=== PATIENT | male | born 1960 | race Caucasian/White ===

== ENCOUNTER 2018-04-13 09:48 | Emergency (ER) | payer OTHER ==
[~2018-04-13] VITALS: Ht 185.4 cm; Wt 117.9 kg
[~2018-04-13 09:48] MED LIST: ASPI325EC PO; CEPH500 PO; CIPR500 PO; GABA300 PO; INS70/30I SC; INSR10I; LISI20 PO; METF500C PO; [UNRECOGNIZED DRUG - REMARK]
== END 2018-04-13 12:23 | disposition home or self-care (01) ==
LOC: ER 09:48
DX: S91.332A Puncture wound without foreign body, left foot, initial encounter (principal); Z79.899 Other long term (current) drug therapy; Z79.84 Long term (current) use of oral hypoglycemic drugs; Z79.82 Long term (current) use of aspirin; I10 Essential (primary) hypertension; E11.9 Type 2 diabetes mellitus without complications; F17.200 Nicotine dependence, unspecified, uncomplicated; W22.8XXA Striking against or struck by other objects, initial encounter
CPT/HCPCS: 73630; 99283-25

== ENCOUNTER 2018-05-16 15:12 | Emergency (ER) | payer OTHER ==
[~2018-05-16] VITALS: Ht 188 cm; Wt 124.7 kg
[2018-05-16 15:56] LABS: BASOPHILS ABSOLUTE AUTO 0.04 K/mm3 (0.00-0.23); BASOPHILS PERCENT AUTO 0 % (0-2); EOSINOPHILS ABSOLUTE AUTO 0.23 K/mm3 (0.00-0.68); EOSINOPHILS PERCENT AUTO 2 % (0-6); Hematocrit 40.5 % (37.0-53.0); Hemoglobin 13.7 g/dL (13.5-17.5); IMMATURE GRAN ABSOLUTE AUTO 0.02 K/mm3 (0.00-0.10); IMMATURE GRAN PERCENT AUTO 0 % (0-1); LYMPHOCYTES ABSOLUTE AUTO 2.72 K/mm3 (0.84-5.20); LYMPHOCYTES PERCENT AUTO 28 % (21-46); MONOCYTES ABSOLUTE AUTO 0.81 K/mm3 (0.16-1.47); MONOCYTES PERCENT AUTO 8 % (4-13); Mean Corpuscular HGB 28.9 pg (26.0-34.0); Mean Corpuscular HGB Conc 33.8 g/dL (31.5-36.5); Mean Corpuscular Volume 85 fL (80-100); Mean Platelet Volume 9.2 fL (9.1-12.4); NEUTROPHILS ABSOLUTE AUTO 5.98 K/mm3 (1.96-9.15); NEUTROPHILS PERCENT AUTO 61 % (41-73); Platelet Count 248 K/mm3 (150-400); RDW Coefficient Variation 13.1 % (11.7-14.2); RDW Standard Deviation 40.3 fL (35.1-46.3); Red Blood Cell Count 4.74 M/mm3 (4.30-5.90)
[2018-05-16 16:19] LABS: Anion Gap 10 mmol/L (6-16); Blood Urea Nitrogen 30 mg/dL (8-24); Bun/Creatinine Ratio 23.4 (12.0-20.0); CO2, Blood 25 mmol/L (21-32); Calcium, Blood 9.4 mg/dL (8.5-10.1); Chloride, Blood 103 mmol/L (98-108); Creatinine, Blood 1.28 mg/dL (0.60-1.20); Glomerular Filtration Rate >60 (60-); Glucose, Blood 146 mg/dL (70-99); Potassium, Blood 3.9 mmol/L (3.5-5.5); Sodium, Blood 138 mmol/L (136-145)
[2018-05-16] MEDS ORDERED: GLIP5 PO (16:47)
== END 2018-05-16 17:13 | disposition home or self-care (01) ==
LOC: ER 15:12
PROVIDERS: Physician Assistant
DX: L03.115 Cellulitis of right lower limb (principal); L97.219 Non-pressure chronic ulcer of right calf with unspecified severity; I82.511 Chronic embolism and thrombosis of right femoral vein; I10 Essential (primary) hypertension; E11.42 Type 2 diabetes mellitus with diabetic polyneuropathy; F17.210 Nicotine dependence, cigarettes, uncomplicated; Z79.82 Long term (current) use of aspirin; Z79.899 Other long term (current) drug therapy
CPT/HCPCS: 36415; 80048; 85025; 93971; 99284-25

== ENCOUNTER → 2018-09-19 | Outpatient (CLI) | payer OTHER ==
[~2018-09-19] MED LIST changes: +GLIP5 PO
[2018-09-19 19:54] LABS: Microalb/Creat Ratio UR, Rand 139.091 mg/g (0.000-30.000)
== END ==
LOC: LAB SHORT 14:47 → LAB 14:47 → EDSTATUS 09-07 10:40 → LAB FUT 09-07 10:40
PROVIDERS: Family Medicine
DX: E11.8 Type 2 diabetes mellitus with unspecified complications (principal)
CPT/HCPCS: 82043; 82570

== ENCOUNTER → 2018-11-14 | Outpatient (CLI) | payer OTHER ==
[2018-11-14 20:04] LABS: Anion Gap 3 mmol/L (6-16); Blood Urea Nitrogen 34 mg/dL (8-24); Bun/Creatinine Ratio 31.8 (12.0-20.0); CO2, Blood 30 mmol/L (21-32); Calcium, Blood 9.3 mg/dL (8.5-10.1); Chloride, Blood 105 mmol/L (98-108); Creatinine, Blood 1.07 mg/dL (0.60-1.20); Glomerular Filtration Rate >60 (60-); Glucose, Blood 176 mg/dL (70-99); Potassium, Blood 4.6 mmol/L (3.5-5.5); Sodium, Blood 138 mmol/L (136-145)
== END ==
LOC: LAB 19:36 → LAB SHORT 19:36
PROVIDERS: Family Medicine
DX: I50.32 Chronic diastolic (congestive) heart failure (principal)
CPT/HCPCS: 80048

== ENCOUNTER → 2019-04-03 | Outpatient (CLI) | payer OTHER ==
[~2019-04-03] MED LIST changes: +ASPI325 PO; +ATORVASTATIN CA40 MG PO; +CARV3.125 PO; +Depo-Testos200 MG/ML IM; +ELIQUIS5 MG PO; +FUROSEMIDE20 MG PO; +INSULANPEN SC; +LOSARTAN POTAS100 MG PO; +Lopressor 25 mg25 MG PO
[2019-04-03 21:10] LABS: Microalb/Creat Ratio UR, Rand 364.205 mg/g (0.000-30.000)
== END ==
LOC: LAB SHORT 19:36 → LAB 19:36 → LAB FUT 04-03 16:00
PROVIDERS: Family Medicine
DX: E11.42 Type 2 diabetes mellitus with diabetic polyneuropathy (principal); E11.21 Type 2 diabetes mellitus with diabetic nephropathy; E11.65 Type 2 diabetes mellitus with hyperglycemia; Z79.4 Long term (current) use of insulin
CPT/HCPCS: 82043; 82570

== ENCOUNTER → 2021-06-28 | Outpatient (CLI) | payer MEDICARE, OTHER ==
[2021-06-28 18:57] LABS: BASOPHILS ABSOLUTE AUTO 0.03 K/mm3 (0.00-0.23); BASOPHILS PERCENT AUTO 0 % (0-2); EOSINOPHILS PERCENT AUTO 2 % (0-6); Hemoglobin 13.1 g/dL (13.5-17.5); IMMATURE GRAN ABSOLUTE AUTO 0.03 K/mm3 (0.00-0.10); IMMATURE GRAN PERCENT AUTO 0 % (0-1); LYMPHOCYTES ABSOLUTE AUTO 1.92 K/mm3 (0.84-5.20); LYMPHOCYTES PERCENT AUTO 23 % (21-46); MONOCYTES PERCENT AUTO 7 % (4-13); Mean Corpuscular HGB 28.6 pg (26.0-34.0); Mean Corpuscular HGB Conc 32.8 g/dL (31.5-36.5); Mean Corpuscular Volume 87 fL (80-100); Mean Platelet Volume 9.9 fL (9.1-12.4); NEUTROPHILS PERCENT AUTO 67 % (41-73); Platelet Count 259 K/mm3 (150-400); RDW Coefficient Variation 13.3 % (11.7-14.2); RDW Standard Deviation 42.3 fL (35.1-46.3); Red Blood Cell Count 4.58 M/mm3 (4.30-5.90); White Blood Cell Count 8.48 K/mm3 (4.00-11.30)
[2021-06-28 19:30] LABS: Alanine Aminotransfer (ALT/SGP 28 U/L (12-78); Albumin, Blood 3.5 g/dL (3.4-5.0); Albumin/Globulin Ratio 0.8 (0.8-1.8); Alk Phos 104 U/L (50-136); Anion Gap 6 mmol/L (6-16); Aspartate Aminotrans (AST/SGOT 19 U/L (12-37); Bilirubin, Total 0.3 mg/dL (0.1-1.0); Blood Urea Nitrogen 35 mg/dL (8-24); CHOL/HDL RATIO 4.4; CO2, Blood 26 mmol/L (21-32); Calcium, Blood 9.2 mg/dL (8.5-10.1); Chloride, Blood 104 mmol/L (98-108); Cholesterol 167 mg/dL (50-200); Creatinine, Blood 1.06 mg/dL (0.60-1.20); Globulin, Blood 4.3 g/dL (2.2-4.0); Glomerular Filtration Rate >60 (60-); Glucose, Blood 313 mg/dL (70-99); HDL Cholesterol 38 mg/dL (>39); LDL/HDL RATIO 1.6; Low Density Lipoprotein Chol 61 mg/dL (0-110); Potassium, Blood 4.6 mmol/L (3.5-5.5); Sodium, Blood 136 mmol/L (136-145); Total Protein, Blood 7.8 g/dL (6.4-8.2); Triglycerides 338 mg/dL (30-160); Very Low Density Lipoprot Chol 67 mg/dL (6-32)
[2021-06-28 19:38] LABS: Thyroid Stimulating Hormone 0.622 uIU/mL (0.360-4.800)
== END | disposition home or self-care (01) ==
LOC: LAB 17:32 → LAB SHORT 17:32
PROVIDERS: Family Medicine
DX: Z51.81 Encounter for therapeutic drug level monitoring (principal); Z79.899 Other long term (current) drug therapy
CPT/HCPCS: 80053; 80061; 82306; 84443; 85025

== ENCOUNTER → 2021-08-11 | Outpatient (CLI) | payer MEDICARE, OTHER ==
[2021-08-11 13:52] LABS: Microalb/Creat Ratio UR, Rand 412.925 mg/g (0.000-30.000)
== END | disposition home or self-care (01) ==
LOC: LAB 10:02 → LAB SHORT 10:02
PROVIDERS: Family Medicine
DX: Z51.81 Encounter for therapeutic drug level monitoring (principal); Z79.899 Other long term (current) drug therapy
CPT/HCPCS: 82043; 82570

== ENCOUNTER 2021-12-25 12:28 | Inpatient (IN) | payer MEDICARE, OTHER ==
[~2021-12-25] VITALS: Ht 182.9 cm; Wt 117.9 kg
[~2021-12-25 12:28] MED LIST changes: +AMOCLA875 PO; +ASPI81CH PO; +Acetaminophen325 M1 PO; +CEFD300 PO; +Clindamycin HC150 MG PO; +ELIQUIS5 M2 PO; +HUMULIN R500 UNIT/1 SC; +LOSARTAN POTAS100 M1 PO; -LOSARTAN POTAS100 MG PO; +METF500 PO; +METR500 PO; +SPIR50 PO; +VISBIOME 112.51 EACH PO
[2021-12-25 15:41] LABS: BASOPHILS ABSOLUTE AUTO 0.04 K/mm3 (0.00-0.23); BASOPHILS PERCENT AUTO 0 % (0-2); EOSINOPHILS ABSOLUTE AUTO 0.41 K/mm3 (0.00-0.68); EOSINOPHILS PERCENT AUTO 3 % (0-6); Hematocrit 38.2 % (37.0-53.0); Hemoglobin 12.3 g/dL (13.5-17.5); IMMATURE GRAN ABSOLUTE AUTO 0.05 K/mm3 (0.00-0.10); IMMATURE GRAN PERCENT AUTO 0 % (0-1); LYMPHOCYTES PERCENT AUTO 14 % (21-46); MONOCYTES PERCENT AUTO 5 % (4-13); Mean Corpuscular HGB 28.5 pg (26.0-34.0); Mean Corpuscular HGB Conc 32.2 g/dL (31.5-36.5); Mean Corpuscular Volume 89 fL (80-100); Mean Platelet Volume 8.7 fL (9.1-12.4); NEUTROPHILS ABSOLUTE AUTO 9.73 K/mm3 (1.96-9.15); NEUTROPHILS PERCENT AUTO 77 % (41-73); Platelet Count 411 K/mm3 (150-400); RDW Coefficient Variation 13.8 % (11.7-14.2); RDW Standard Deviation 44.7 fL (35.1-46.3); Red Blood Cell Count 4.31 M/mm3 (4.30-5.90); White Blood Cell Count 12.63 K/mm3 (4.00-11.30)
[2021-12-25 16:09] LABS: Albumin, Blood 3.1 g/dL (3.4-5.0); Albumin/Globulin Ratio 0.5 (0.8-1.8); Bilirubin, Total 0.4 mg/dL (0.1-1.0); Bun/Creatinine Ratio 34.7 (12.0-20.0); Calcium, Blood 9.5 mg/dL (8.5-10.1); Creatinine, Blood 1.73 mg/dL (0.60-1.20); Globulin, Blood 6.2 g/dL (2.2-4.0); Potassium, Blood 4.4 mmol/L (3.5-5.5); Total Protein, Blood 9.3 g/dL (6.4-8.2)
[2021-12-25 19:07] LABS: Influenza A, PCR NEGATIVE (NEGATIVE); Influenza B, PCR NEGATIVE (NEGATIVE); Resp Syncytial Virus, PCR NEGATIVE (NEGATIVE); SARS-Cov-2 (COVID-19) PCR, MMC NEGATIVE (NEGATIVE)
[2021-12-26] MEDS ORDERED: GLUCOPHAGE1000 M1 PO (09:15)
[2021-12-26] MEDS ORDERED: CARVEDILOL12.5 MG PO (09:16)
[2021-12-26 10:16] LABS: Bun/Creatinine Ratio 38.7 (12.0-20.0); Calcium, Blood 9.1 mg/dL (8.5-10.1); Creatinine, Blood 1.42 mg/dL (0.60-1.20); Potassium, Blood 4.2 mmol/L (3.5-5.5)
[2021-12-26 17:33] LABS: Source, Urine Clean Catch
[2021-12-26 17:36] LABS: Bilirubin, Urine Neg (Neg); Blood, Urine 1+ (Neg); Color, Urine Yellow (P-Yellow); Glucose Qualitative, Urine 1+ (Neg); Ketones, Urine Neg (Neg); Leukocyte Esterase, Urine Neg (Neg); Nitrite, Urine Neg (Neg); Protein, Urine 2+ (Neg); Specific Gravity, Urine 1.025 (1.003-1.022); Urobilinogen, Urine NORM (Normal)
[2021-12-26 17:59] LABS: Appearance, Urine Hazy (Clear)
[2021-12-26 18:02] LABS: Granular Casts 0-2 /lpf (0)
[2021-12-26 18:03] LABS: Amorphous Light (0-Heavy); Bacteria Mod /hpf; Mucus Light (0-Heavy); Red Blood Cells, Urine 0-2 /hpf (0-2); Squamous Epithelial Cells Few /hpf (Few)
[2021-12-26 18:09] LABS: U Amphetamine Screen Not Detected; U Barbituate Screen Not Detected; U Benzodiazapine Screen Not Detected; U Buprenorphine Screen Not Detected; U Cannabinoids Screen Not Detected; U Cocaine Screen Not Detected; U Methadone Screen Not Detected; U Methamphetamine Screen Not Detected; U Opiates Screen Not Detected; U Oxycodone Screen Not Detected; U Phencyclidine Screen Not Detected; U Propoxyphene Screen Not Detected
[2021-12-27 12:26] LABS: BASOPHILS ABSOLUTE AUTO 0.04 K/mm3 (0.00-0.23); BASOPHILS PERCENT AUTO 0 % (0-2); EOSINOPHILS ABSOLUTE AUTO 0.39 K/mm3 (0.00-0.68); EOSINOPHILS PERCENT AUTO 4 % (0-6); Hematocrit 31.1 % (37.0-53.0); Hemoglobin 10.2 g/dL (13.5-17.5); IMMATURE GRAN ABSOLUTE AUTO 0.03 K/mm3 (0.00-0.10); IMMATURE GRAN PERCENT AUTO 0 % (0-1); LYMPHOCYTES PERCENT AUTO 15 % (21-46); MONOCYTES PERCENT AUTO 6 % (4-13); Mean Corpuscular HGB 28.5 pg (26.0-34.0); Mean Corpuscular HGB Conc 32.8 g/dL (31.5-36.5); Mean Corpuscular Volume 87 fL (80-100); Mean Platelet Volume 9.2 fL (9.1-12.4); NEUTROPHILS ABSOLUTE AUTO 7.06 K/mm3 (1.96-9.15); NEUTROPHILS PERCENT AUTO 74 % (41-73); Platelet Count 316 K/mm3 (150-400); RDW Coefficient Variation 13.9 % (11.7-14.2); RDW Standard Deviation 43.3 fL (35.1-46.3); Red Blood Cell Count 3.58 M/mm3 (4.30-5.90); White Blood Cell Count 9.52 K/mm3 (4.00-11.30)
[2021-12-27 12:45] LABS: Albumin, Blood 2.5 g/dL (3.4-5.0); Albumin/Globulin Ratio 0.5 (0.8-1.8); Bilirubin, Total 0.3 mg/dL (0.1-1.0); Bun/Creatinine Ratio 34.6 (12.0-20.0); Calcium, Blood 8.6 mg/dL (8.5-10.1); Creatinine, Blood 1.85 mg/dL (0.60-1.20); Globulin, Blood 5.1 g/dL (2.2-4.0); Potassium, Blood 4.6 mmol/L (3.5-5.5); Total Protein, Blood 7.6 g/dL (6.4-8.2)
--- NOTE | 2021-12-27 18:30 | NUR ---
SPOKE WITH DR. MALIK ON THE TELEPHONE AT 1810. DR. MALIK ORDERED THE 1:1 SITTER TO BE DISCONTINUED. THE SITTER CAME UP WITH THE PATIENT BUT WAS TOLD SHE COULD LEAVE SINCE A SITTER IS NO LONGER NEEDED. TRICHOLOGIST AND NURSING EMERGENCY DEPARTMENT COORDINATOR NOTIFIED.
--- NOTE | 2021-12-28 04:16 | NUR ---
NIGHTSHIFT SUMMARY Patient AOx4, pleasant and cooperative. Vitals stable, CBG at HS was 272. 1 bag of fluids infused. Right foot s/p toe amputation, wrapped in kerlix CDI. Patient reports neuropathy, but stated the pain is getting better. Weak gait, unsteady, staff SBA for safety. Patient sleeping comfortably all night. Bed alarm activated and audible, call-light in reach. Remote monitoring in place for safety. Will continue to monitior.
[2021-12-28 05:37] LABS: BASOPHILS ABSOLUTE AUTO 0.04 K/mm3 (0.00-0.23); BASOPHILS PERCENT AUTO 1 % (0-2); EOSINOPHILS ABSOLUTE AUTO 0.34 K/mm3 (0.00-0.68); EOSINOPHILS PERCENT AUTO 6 % (0-6); Hematocrit 30.5 % (37.0-53.0); Hemoglobin 9.7 g/dL (13.5-17.5); IMMATURE GRAN ABSOLUTE AUTO 0.01 K/mm3 (0.00-0.10); IMMATURE GRAN PERCENT AUTO 0 % (0-1); LYMPHOCYTES ABSOLUTE AUTO 2.13 K/mm3 (0.84-5.20); LYMPHOCYTES PERCENT AUTO 34 % (21-46); MONOCYTES ABSOLUTE AUTO 0.52 K/mm3 (0.16-1.47); MONOCYTES PERCENT AUTO 8 % (4-13); Mean Corpuscular HGB Conc 31.8 g/dL (31.5-36.5); Mean Corpuscular Volume 88 fL (80-100); Mean Platelet Volume 8.9 fL (9.1-12.4); NEUTROPHILS ABSOLUTE AUTO 3.16 K/mm3 (1.96-9.15); NEUTROPHILS PERCENT AUTO 51 % (41-73); Platelet Count 297 K/mm3 (150-400); RDW Coefficient Variation 14.3 % (11.7-14.2); RDW Standard Deviation 45.4 fL (35.1-46.3); Red Blood Cell Count 3.47 M/mm3 (4.30-5.90)
[2021-12-28 05:40] LABS: Albumin, Blood 2.3 g/dL (3.4-5.0); Albumin/Globulin Ratio 0.5 (0.8-1.8); Bilirubin, Total 0.3 mg/dL (0.1-1.0); Bun/Creatinine Ratio 43.5 (12.0-20.0); Calcium, Blood 8.6 mg/dL (8.5-10.1); Creatinine, Blood 1.15 mg/dL (0.60-1.20); Globulin, Blood 4.5 g/dL (2.2-4.0); Magnesium, Blood 2.4 mg/dL (1.6-2.4); Potassium, Blood 4.2 mmol/L (3.5-5.5); Total Protein, Blood 6.8 g/dL (6.4-8.2)
--- NOTE | 2021-12-28 19:27 | NUR ---
SHIFT SUMMARY PT A&OX3-4, MOOD UP AND DOWN T/O SHIFT. SBA BSC. INCONT THIS AM. TOLERATING PO INTAKE WELL. WOUNDS OPEN TO AIR PER DR. SHIN-AWAITING WOUND CLINIC EVAL. CALL LIGHT W/IN REACH. SLIGHT PARANOIA @ TIMES, STATES HE THINKS HIS FRIEND IS IN THE [place].
--- NOTE | 2021-12-29 03:56 | NUR ---
FRAMING CONSULTANT SUMMARY NO ACUTE CHANGES. PT CAN ANSWER ORIENTATION QUESTIONS; BUT CAN FIXATE ON THOUGHTS/IDEAS WHICH ARE NOT REALITY/FACTUAL. LIABLE MOOD. PT WANTED TO CHECK MEDS/INSULIN PRIOR TO ADMINISTRATION; PT WANTING TO FEEL CONTROL OF CARE/DECISIONS. PT REQ TO MAKE PHONE CALL TO PEOPLE HE DIDN'T HAVE A NUMBER FOR; PT INSISTED STAFF HAD NUMBER--UNABLE TO LOCATE NUMBER REQUESTED. WOUNDS REMAIN OPEN TO AIR; PHOTOS TAKE AND PLACED IN CHART. AFTER ASLEEP, PT RESTED T/O THE NIGHT. CALL LIGHT IN REACH.
--- NOTE | 2021-12-29 10:04 | NUR ---
WOUND PHOTO AND ASSESSMENT IN HARD CHART. BRESSING ORDERS IN [facility]. TWO STITCHES REMOVED. PT TOLERATED WELL. PT WILL NEED FOLLOW UP WITH WOUND CARE ON DC
--- NOTE | 2021-12-29 15:53 | NUR ---
PATIENTS ANXIETY AND OPPOSITIONAL INCREASED, INCREASED WITH AGITTATION, MEDICATED WITH PRN SEROQUEL AT PATIENTS REQUEST.
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
--- NOTE | 2021-12-30 05:01 | NUR ---
SHIFT SUMMARY PATIENT DENIES PAIN, NAUSEA, SHORTNESS OF BREATH. PATIENT IS A 1P WITH A FWW. PATIENT A&O X4, BUT GOES OFF ON TANGENTS THAT DONT MAKE SENSE, TALKING ABOUT RATS EATING HIS TOE, HELLS ANGELS PROTECTING HIS HOUSE, HIS MOTHER BEING A LACTATION NURSE THAT PUT HELLS ANGELS IN RESIDENTIAL. PATIENT EATING AND DRINKING WELL. PATIENT SLEPT ON AND OFF. PATIENT HAS BEEN MOSTLY PLEASANT AND COOPERATIVE WITH CARE.
--- NOTE | 2021-12-30 18:43 | NUR ---
MAKES NEEDS KNOWN, CALL LIGHT WITH IN REACH, SCREAMS OUT FOR NEEDS, USES CALL LIGHT, IMPULSIVE OUT OF BED, RELUCTANT TO ANY CARE EDUCATION OR INTERVENTION. VERY OPPOSITIONAL WITH STAFF. VSS, PATEINT GAIT WEAK AT TIMES, MEDICATED WITH SEROQUEL X2 TODAY. PATIENT SCREAMMED OUT AT OTHER PATIENT TO "SHUT UP, JUST GIVE IT UP". WAITING FORM PLACEMENT TO A SNF, ZEESHAN HAS ALREADY REFUSED, WILL RELAY TO PM HUONG
--- NOTE | 2021-12-31 06:03 | NUR ---
SHIFT SUMMARY PATIENT DENIES PAIN, NAUSEA, AND SHORTNESS OF BREATH. PATIENT IS A 1P WITH A FWW. AFTER EVENING MEDICATIONS, PATIENT REQUESTED DOOR TO BE OPEN, THEN COMPLAINED ABOUT THE NOISE AND OTHER PATIENTS YELLING. PATIENT THEN SLEPT FOR MOST OF SHIFT. PATIENT WOKE UP AROUND 0500 DEMANDING TO CALL PEOPLE. WHEN ASKED WHO, PATIENT STATED "FINANCIAL RESPONSIBILITIES". ATTEMPT TO EDUCATE PATIENT ABOUT HOW NOTHING WAS OPEN RIGHT NOW, PATIENT ROLLED EYES AND DISAGREED, STATING "IN [place] THEY ARE". PATIENT EATING AND DRINKING WELL.
--- NOTE | 2021-12-31 17:27 | NUR ---
PT A&OX3-4, MOOD UP AND DOWN T/O SHIFT. PT TALKATIVE T/O SHIFT. C/O DOOR BEING OPEN AND UNIT BEING SO LOUD, YELLS OUT @ TIMES TELLING OTHER PT'S TO "SHUT UP". C/O BEING UPSET WITH HOW CONVERSATION W/ NIECE WENT. CALL LIGHT W/IN REACH. VSS.
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
--- NOTE | 2022-01-01 17:04 | NUR ---
CONTINUED PHYCHIATRIC SYMTOMS PT NEICE AND UNCLE CONTACTED THIS RN VOICING CONCERN ABOUT PT MENTAL STATE AND NOT RECIEVING ADEQUATE PSYCHIATRIC CARE. PT CONTINUES TO SHOW PARANOIA, ON THE PHONE PT IS TELLING FAMILY THAT THE FEDS ARE NEXT DOOR AND HE CAN SEE LASORS. SPEECH IS PRESSURED AND THINKING APPEARS JUMBLED. DR. PEDRO CONTACTED AND NOTIFIED OF CONTINUED PSYCHIATRIC NEED- THIS RN INSTRUCTED TO RECONTACT DR. AMIN ON MONDAY WHEN HE RETURNS FOR A POSSIBLE RE-EVAL OF NEEDS.
--- NOTE | 2022-01-01 18:28 | NUR ---
SHIFT SUMMARY PT A&OX2-3 AND IN PLEASENT MOOD T/O SHIFT. PT ON PHONE SEVERAL TIMES T/O SHIFT W/ DIFFERENT FAMILY MEMBERS/FRIENDS. THIS RN CONTACTED BY PT'S UNCLE AND NEICE STATING THIS BEHAVIOR IS NOT NORMAL AND VOICED CONCERNS, SEE NOTE. PT TOLERATING PO INTAKE WELL. WOUND DRESSED AND PHOTOGRAPHED THIS SHIFT, SHOWERED. CALL LIGHT W/IN REACH. PT STATES, "I AM FRIENDS WITH ALDO ESTRADA, I TALK TO HIM THROUGH THE TV, HE IS GOING TO COME GET ME IF THATS OK."
--- NOTE | 2022-01-02 05:51 | NUR ---
SHIFT SUMMARY - NO ACUTE CHANGES THIS SHIFT. PT REMAINED ALERT AND ORIENTED X3, HOWEVER HE OCCASIONALLY HAS CONFUSED EPISODES - REPORTED HE WAS TALKING TO ALDO ESTRADA ON THE TELEPHONE TO CONSTRUCTION OR LEAK GANG LABORER. PO FLUIDS AT BEDSIDE. CALL LIGHT WITHIN REACH. BED IN LOW POSITION. DRESSINGS TO BILATERAL LE'S IN PLACE, CD&I. R 2ND TOE, HAS SMALL AMOUNT OF DRAINAGE ON DRESSING - ORDERS ARE FOR DRESSING CHANGES EVERY 2 DAYS - REPORT FROM DAY SHIFT RN IS THE DRESSINGS WERE ALL CHANGED BY DURING HER SHIFT. PT SLEPT FOR APPX 5-6 HOURS TONIGHT. FLUIDS AT BEDSIDE. CALL LIGHT WITHIN REACH. BED IN LOW POSITION.
--- NOTE | 2022-01-02 17:07 | NUR ---
SHIFT SUMMARY PT A&OX2-3, PT READS WHITE BOARD WHEN ASKED ORIENTATION QUESTIONS. MOOD UP AND DOWN T/O SHIFT. PT TALKS T/O SHIFT, "I TALK TO EUGENIO ESTRADA THROUGH T.V" "THE MEDICAL PAYMENT POSTER WATCH ME THROUGH THE DOOR" MAKES INAPPROPRIATE COMMENTS TO FEMALE STAFF. CALL LIGHT W/IN REACH. SBA. HEEL WOUND REDRESSED THIS SHIFT. VSS. PLAN FOR POSSIBLE RE-EVAL BY PSYCH OR SNF PLACEMENT.
--- NOTE | 2022-01-02 17:23 | NUR ---
PT FRIEND ALAINA CALLED CONCERNED ABOUT PT PSYCIATRIC STATE. PLANS TO CALL BACK DURING WEEK TO SEE IF PT CAN GET REEVALUATED.
--- NOTE | 2022-01-03 06:17 | NUR ---
SHIFT SUMMARY: PATIENT IS A&O TO SELF, PLACE AND SURROUNDINGS. BG WAS 225 AT HS. 4O UNITS OF GLARGINE WAS GIVEN PER MAR. PATIENT TALKS TO SELF IN ROOM. INC. OF URINE AT TIMES BUT ALSO USES URINAL STANDING AT THE BEDSIDE WITH SBA. PATIENT BECOMES ANXIOUS WHEN OTHER PATIENTS ARE YELLING IN THE [place] BUT IS RE-ASSURED AND EMOTIONAL SUPPORT IS GIVEN.
--- NOTE | 2022-01-03 17:44 | NUR ---
SHIFT SUMMARY NO ACUTE CHANGES DURING SHIFT. PT ALERT TO SELF, STILL WITH VISUAL HALLUCINATIONS. DRESSINGS TO BLE CHANGED TODAY. PT OOB TO CHAIR FOR LUNCH. PT UP TO BEDSIDE COMMODE, X 1 ASSIST WITH FWW. PT PENDING PLACEMENT TO FACILITY. WILL CONTINUE TO MONITOR. CALL LIGHT WITHIN REACH.
--- NOTE | 2022-01-04 06:07 | NUR ---
SHIFT SUMMARY PATIENT ALERT AND ORIENTED X3. HAD NO COMPLAINTS OF PAIN OR SHORTNESS OF BREATH. PATIENT REMOVED THE BANDAGE FROM HIS RIGHT FOOT AND ONLY LET NURSE PARTIALLY REDRESS IT. PATIENT DID NOT SLEEP AND SPENT THE NIGHT SPEAKING/YELLING NONSENSICALLY TO HIMSELF AND HIS DELUSIONS. CALL LIGHT WITHIN REACH. REPORT GIVEN TO ONCOMING RN.
[2022-01-04 06:17] LABS: Hematocrit 32.2 % (37.0-53.0); Hemoglobin 10.8 g/dL (13.5-17.5); Mean Corpuscular HGB 28.8 pg (26.0-34.0); Mean Corpuscular HGB Conc 33.5 g/dL (31.5-36.5); Mean Corpuscular Volume 86 fL (80-100); Mean Platelet Volume 9.1 fL (9.1-12.4); Platelet Count 221 K/mm3 (150-400); RDW Coefficient Variation 14.1 % (11.7-14.2); RDW Standard Deviation 43.7 fL (35.1-46.3); Red Blood Cell Count 3.75 M/mm3 (4.30-5.90); White Blood Cell Count 8.55 K/mm3 (4.00-11.30)
[2022-01-04 06:41] LABS: Albumin, Blood 2.6 g/dL (3.4-5.0); Anion Gap 7 mmol/L (6-16); Blood Urea Nitrogen 30 mg/dL (8-24); Bun/Creatinine Ratio 30.2 (12.0-20.0); CO2, Blood 28 mmol/L (21-32); Calcium, Blood 9.6 mg/dL (8.5-10.1); Chloride, Blood 106 mmol/L (98-108); Creatinine, Blood 0.99 mg/dL (0.60-1.20); Glomerular Filtration Rate 88 (60-); Glucose, Blood 92 mg/dL (70-99); Phosphorus, Blood 3.1 mg/dL (2.5-4.9); Potassium, Blood 3.5 mmol/L (3.5-5.5); Sodium, Blood 141 mmol/L (136-145)
--- NOTE | 2022-01-04 17:20 | NUR ---
SHIFT SUMMARY NO ACUTE CHANGES DURING SHIFT. PT ALERT AND ORIENTED, STILL HAS CONFUSED CONVERSATIONS TODAY. PT C/O BACK PAIN TODAY, PRN MEDICATIONS ADMINISTERED. PENDING MRI FOR CONFUSION. DRESSINGS TO BLE'S CHANGED TODAY. PT UP OOB TO CHAIR, SBA WITH FWW. WILL CONTINUE TO MONITOR. CALL LIGHT WITHIN REACH.
--- NOTE | 2022-01-04 20:40 | NUR ---
IMAGING TAKING PATIENT FOR MRI VIA W/C. SBA TO W/C. MASK PROVIDED.
--- NOTE | 2022-01-04 21:25 | NUR ---
PATIENT BACK FROM IMAGING AND MRI. TECH REPORTED TOLERATED WELL. ARRIVED VIA W/C. TM
--- NOTE | 2022-01-05 04:37 | NUR ---
SHIFT SUMMARY PATIENT HAD NO ACUTE CHANGES. AXOX 2 WITH NON-SENSICAL SPEECH/DELUSIONAL. SBA W/FWW TO BR. IMAGING TOOK PATIENT FOR MRI THIS SHIFT. NO IV ACCESS. CBG 284. VSS/AFEBRILE. DENIES PAIN, SOB, AND N/V. SAT IN CHAIR IN HALLWAY FIRST PART OF SHIFT. CALL LIGHT IN REACH. BED IN LOWEST POSITION. WILL CONTINUE TO MONITOR UNTIL DAY SHIFT NURSE ASSUMES CARE.
--- NOTE | 2022-01-05 16:12 | NUR ---
Pt calls me into his room and then talks with very little space for comment for over 20 minutes. I provide therapeutic listening and a calming presence. Pt voices appreciation for the visit.
--- NOTE | 2022-01-05 18:02 | NUR ---
SHIFT SUMMARY PT IS ALERT BUT CONFUSED. PT COOPERATIVE WITH CARE. NO C/O OF PAIN. PT HAS BEEN SITTING AT BEDSIDE FOR MOST OF DAY AND CONTNOUSLY TALKS TO HIMSELF OR PT NEXT DOOR. PT STATES HE CAN TALK TO PT WITH HIS MIND. PT HAS ALSO BEEN FIXATED ON HIS FLOOR BECAUSE HE STATES IT'S TOO SLIPERY. PT DOES NOT USE CALL LIGHT, HE YELLS OUT WHEN HE NEEDS SOMETHING. BED IN LOWEST POSTION AND CALL LIGHT IN REACH.
--- NOTE | 2022-01-06 04:40 | NUR ---
SHIFT SUMMARY PT AWAKE THE ENTIRE NIGHT. SITTING AT THE SIDE OF HIS BED AND TALKING NON STOP. SPEECH IS PRESSURED AND ERRATIC. PT SPEAKING TO PEOPLE THAT ARE NOT IN THE ROOM. SPENT MUCH OF THE NIGHT TALKING ABOUT HOW THE WORLD WAS GOING TO END. REFUSED TO TAKE MOST OF HIS EVENING MEDICATIONS EXCEPT FOR HIS ELOQUIS. WOUND ON R TOE UNDRESSED. PT ONLY ALLOWED FOR CALCIUM ALGINATE TO BE PLACED ON WOUND. VITAL SIGNS STABLE.
--- NOTE | 2022-01-06 18:35 | NUR ---
SHIFT SUMMARY PT AWAKE AND SITTING AT EDGE OF BED MOST OF DAY. PT CONFUSED AND AGITATED FOR MOST OF THE MORNING. STATING PEOPLE ARE TRYING TO KILL HIM. SEVERAL TIMES PT WARNED STAFF NOT TO COME TOO CLOSE BECAUSE HE DIDN'T WANT TO HURT ANYONE. PT TALKED TO SELF NON STOP FOR ENTIRE DAY. PT AMBULATED IN [place] WITH FWW AND STANDBY ASSIST. BED IN LOWEST POSTION AND CALL LIGHT IN REACH.
--- NOTE | 2022-01-07 01:46 | NUR ---
PATIENT REFUSING TO ALLOW THIS RN TO ASSESS OR REDRESS R. TOE SURGICAL WOUND. HE WILL NOT PICK FEET UP OFF THE FLOOR WHICH ARE BOTH VERY TIGHT AND EDEMATOUS. MULTIPLE ATTEMPTS TO EDUCATE HIM ON THE NECESSITY OF ELEVATING HIS LOWER EXTREMITIES TO PROMOTE BETTER CIRCULATION AND ENCOURAGE HEALING. HOWEVER, PATIENT CONVINCED THAT THIS IS NOT CORRECT AND "THAT IT WOULD MAKE IT MUCH HARDER TO BE ABLE TO WALK NORMALLY AGAIN". WILL CONTINUE CLOSE MONITORING AND ATTEMPTING TO CONVINCE PATIENT TO LAY DOWN OR SIT DOWN WITH FEET ELEVATED.
--- NOTE | 2022-01-07 07:39 | NUR ---
ASSURANCE SENIOR MANAGER INSURANCE SUMMARY PATIENT SPENT THE WHOLE NIGHT EITHER SITTING ON THE SIDE OF THE BED OR LAYING ACROSS IT WITH HIS FEET DANGLING OFF ONE SIDE AND HOLDING HIS HEAD UP ON THE OTHER. HE DID AGREE TO TAKE HIS HS MEDS (WITH ICE). HE WOULD NOT ACCEPT ANY FLUID EVEN TO SWALLOW HIS PILLS DUE TO "A BAD HEART". PATIENT WAS VERY TALKATIVE AND DECIDED THAT HE WOULD NOT ALLOW AN ASSESSMENT OR AN EXAMINATION OF HIS RIGHT HEEL OR HIS LEFT TOE AMPUTATION WOUND. BOTH DRESSINGS LOOK LIKE THEY ARE FILTHY AND IN NEED OF A CHANGE. PATIENT STATED THAT RATS ATE AT HIS TOES UNTIL THEY WERE BLACK. TRIED TO EDUCATE PATIENT ABOUT THE IMPORTANCE OF ELEVATING LEGS TO DECREASE EDEMA AND PROMOTE BETTER CIRCULATION, BUT PATIENT INSISTED THAT THE STAFF "KEPT TURNING HIM AROUND" TO CONFUSE HIM AND MAKE HIM THINK HE'S CRAZY". RESIDENTIAL DIRECT SUPPORT PROFESSIONAL, PATIENT REMOVED THE FOOT OF THE BED AND DROPPED IT ON THE FLOOR . WHEN THIS RN ENTERED [facility] ROOM, PATIENT HAD DROPPED ALL OF HIS CUPS ON THE FLOOR SPILLING ICE AND TEA AT THE FOOT OF THE BED. THIS RN WAS UNABLE TO EFFECTIVELY EDUCATE THE PATIENT OR DISCUSS THE GOALS OF CARE. HE WAS NOT OPEN TO SUGGESTION OR DISCUSSION THROUGH THE ENTIRE NIGHT. THE PATIENT HAD NO COMPLAINTS OF PAIN OR DISCOMFORT OVERNIGHT.
--- NOTE | 2022-01-07 17:37 | NUR ---
SHIFT SUMMARY PATIENT IS ALERT AND ORIENTED X2. PATIENT HAS HAD NO ACUTE EVENTS THIS SHIFT. PATIENT HAS BEEN UP AND DOWN OUT OF BED TRYING TO URINATE AT SIDE OF BED AND FREQUENTLY USES CALL LIGHT FOR LITTLE THINGS CONSTANTLY. PATIENT FREQUENTLY TALKS TO SELF AND USES NONSENSICAL TALK. VITAL SIGNS REVIEWED. CBG WELL CONTROLLED THIS SHIFT. BED IN LOCKED AND LOWEST POSITION. PATIENT HAS NOT COMPLAINED OF PAIN, NAUSEA, SOB OR VOMITTING THIS SHIFT. WILL MONITOR UNTIL SHIFT CHANGE.
--- NOTE | 2022-01-08 04:19 | NUR ---
NO CHANGES OVERNIGHT WITH REGARD TO REFUSAL OF ASSESSMENT OR DRESSING CHANGES. CONTINUES TO TALK CONSTANTLY TO SELF OR INTO HIS PHONE REPEATING EVERYTHING HE HEARS OUTSIDE OF THE ROOM. WHEN HE PUTS DOWN HIS PHONE, HE STATES HE IS SPEAKING TO THE PERSON WHO WAS IN ROOM 353. HE SAYS "SHE WON'T LEAVE UNTIL HER WHOLE FAMILY IS GONE FROM THIS [place]". PATIENT DID HOWEVER SLEEP IN THE BED WITH HIS FEET ELEVATED FOR THE MAJORITY OF THE NIGHT AFTER RECEIVING HIS HS SEROQUEL
--- NOTE | 2022-01-08 17:09 | NUR ---
SHIFT SUMMARY PT SLEEPING AT START OF SHIFT. WOKE FOR BREAKFAST AND HAS BEEN TALKING TO HIMSELF SINCE. PT CAN BE IMPATIENT AND RUDE TO STAFF. TOOK AM MEDS, BUT DID QUESTION EACH ONE. UP TO BSC FOR BM, VOIDING ALL OVER FLOOR. REFUSED DRSG CHANGE TO L HEEL FOR A WHILE, BUT LATER REQUESTED IT DRSG FELL OFF. PT LATER WORKED NEW DRSG OFF WELL. FEET SWOLLEN WITH VERY DRY PEELING SKIN. SCATTERED SCABS AND AMPUTATED R MIDDLE TOE. NO C/O PAIN. ABLE TO USE CALL LT, BUT MOSTLY JUST YELLS OUT NEEDED. PT WAITING FOR PLACEMENT AT THIS TIME.
--- NOTE | 2022-01-09 03:04 | NUR ---
WARDROBE MANAGER SUMMARY MARLA SPIT OUT AND REFUSED HIS HS SEROQUEL LAST NIGHT. HE ACTUALLY DID SEEM A LITTLE MORE PLEASANT, HOWEVER HE WAS AGAIN UP ALL NIGHT. HE HAS APENT THE NIGHT TALKING INTO HIS PHONE ( IF THERE WAS SOMEONE ON THE OTHER LINE). WHEN ASKED WHO HE WAS TALKING TO, HE SAID, "IT'S HER (POINTING TO ROOM 353) AND HER FAMILY. DON'T WORRY. I WON'T LEAVE UNTIL THEY ARE ALL GONE". PATIENT STATED THAT THE FAMILY OF THEPREVIOUS PATIENT NEXT DOOR WERE ALL STUCK INSIDE OF THE HELLER. \\ NO COMPLAINTS OF PAIN OR DISCOMFORT, AND THE PATIENT ALLOWED TWO STAFF TO ACTUALLY CHANGE THE SHEETS AND INCONT PAD UNDERNEATH HIM AND PROVIDE HIM WITH FRESH GOWN
--- NOTE | 2022-01-09 15:48 | NUR ---
SHIFT SUMMARY PT AWAKE, TALKING TO HIMSELF AGAIN AT START OF SHIFT AND HAS NOT STOPPED UNTIL JUST RECENTLY. PT ATE SOME PRN SEROQUEL CRUSHED IN PUDDING WITH LUNCH ADN AFTER SITTING IN THE SUN AT THE END OF HIS BED, BECAME SLEEPY AND IS NOW TAKING A NAP. PT UP TO SHOWER THIS AM WITH ASSIST FROM APPELLATE COURT CLERK. NEW DRSG'S PLACED TO L HEEL AND R 2ND TOE, WELL WOUNDS TO TOP OF R FOOT. PT THEN REQUESTING COBAN OVER DRSG'S TO KEEP THEM INTACT. DR SHIN IN TO SEE PT THIS AM. PT ENCOURAGED TO TAKE ORDERED MEDICATIONS, PT HAS BEEN REFUSING MOST OF IMPORTANT MEDS. PT'S CONCHITA CALLED TO CK ON PT AND THEN CALLED PT IN RM. NO C/O PAIN, DENIED FURTHER NEEDS. CALL LT IN REACH. BED ALARM ON FOR SAFETY.
--- NOTE | 2022-01-10 02:15 | NUR ---
PATIENT SLEPT MOST OF THE SHIFT AFTER RECEIVING HIS HS SEROQUEL GROUND AND MIXED INTO AN AFTER DINNER SNACK. PATIENT WAS GENTLY AWAKEND TO PERFORM ASSESSMENT AND CHECK BLOOD SUGAR AROUND 2300, AND HE REFUSED BOTH. WHILE ASLEEP, MARLA APPEARED TO HAVE MULTIPLE EPISODES OF SLEEP APNEA WITH RESPIRATIONS UP TO 24, THEN DROPPING DOWN TO PAUSE FOR 8-15 SECONDS.
--- NOTE | 2022-01-10 18:12 | NUR ---
SHIFT SUMMARY- PT IS ALERT, PLESANT AND COOPERATVE. HE IS EATING AND DRINKING WELL. HE IS DIFFICULT TO REORIENT AT TIME. HIS SPEECH IS NONCOHERENT, AND OFTEN RAMBLING. HE OFTEN TALKES TO HIMSELF DURING THE DAY. HE IS CURRENTLY LAYING SIDEWAYS IN THE BED, DOES NOT WANT TO BE REPOSITIONED. HIS BED IS IN THE LOW POSITION CALL LIGHT IS WITHIN REACH.
--- NOTE | 2022-01-11 04:52 | NUR ---
SHIFT SUMMARY 61 YR M ADMITTED ON 12/25/21 ON A 2 MD HOLD. FULL CODE. PT HAS BEEN VERY UNCOOPERATIVE THIS SHIFT. HE REFUSED TO TAKE ANY OF HIS MEDS AND HE WAS VERBALLY AGGRESSIVE WITH THIS NURSE AND THE STEM ROLLER. HE HAS BEEN HAVING NON-STOP CONVERSATIONS WITH PEOPLE WHO ARE NOT THERE AND AT TIMES HE TALKS ABOUT VIOLENT THINGS SUCH KILLING PEOPLE. HE TALKS INTO HIS PHONE IF SOMEONE IS ON THE OTHER END ARGUING WITH HIM, BUT NOONE IS THERE. HE IS ALSO LAYING SIDEWAYS ON THE BED AND STATES THAT HE IS COMFORTABLE AND REFUSES TO LET ANYONE HELP TO REPOSITION HIM.
--- NOTE | 2022-01-11 17:43 | NUR ---
SHIFT SUAMMRY VSS. PT REFUSED MEDIACTIONS ALL DAY. PT PARANOID. PT CONFUSED NONSENSICAL YELLING OUT ALL DAY. PT STAYS IN BED, CAN BE REDIRECTED TO STAY IN BED. APPETITE GOOD. BED ALARM ON, CALL LIGHT IN REACH. WILL CONTINUE TO MONITOR.
--- NOTE | 2022-01-12 04:53 | NUR ---
CRUST SORTER SUMMARY REFUSED HS MEDS. VERBALIZATION DISPLAYED APPARENT FLIGHT OF IDEAS, AND HE EVEN STATED THAT HE RAMBLES ON WHEN TALKING. HAS BEEN RESTING QUIETLY WITH FEW INTERRUPTIONS. UP WITH ASSIST TO VOID X 1. VSS. CALL LIGHT IN REACH. NO NOTED APPARENT ACTE PHYSICAL DISTRESS. WILL CONTINUE TO MONITOR.
--- NOTE | 2022-01-12 14:37 | NUR ---
SPOKE WITH CONCHITA, GAVE UPDATE ON CARE. CONCHITA STATED SHE WOULD CONTACT PT TOMORROW. WILL CONTINUE TO TARI.
[2022-01-12] MEDS ORDERED: SEROQUEL50 MG PO (16:16)
--- NOTE | 2022-01-12 17:11 | NUR ---
SHIFT SUMMARY- VSS. PT EMOTIONAL, AGITATED, AND INFLICTING PAIN ON SELF, BY HITTING HIMSELF IN HEAD. PT IS MODERATING REDIRECTED BY SITTING WITH HIM AND LETTING HIM CONVERSE. BANDAGE CHANGE OF RLE, PER WOUND CARE ORDERS. ELEVATED EXTREMITY OFTEN PT WOULD ALLOW. PT HALLUCINATING AND CHATTING WITH PEOPLE NOT PRESENT IN ROOM. PT DID TAKE MEDICATIONS WHEN PROMPTED. CALL LIGHT IN REACH, BED ALARM ON.
--- NOTE | 2022-01-12 18:15 | NUR ---
ATTEMPTED TO CALL RN AT [facility] REGARDING TRANSFER, RN TO RETURN CALL, LEFT CALL BACK NUMBER.
--- NOTE | 2022-01-12 18:32 | NUR ---
GAVE REPORT TO HUONG MAHONEY AT [facility], READY TO TRANSFER.
== END 2022-01-12 20:13 | disposition short-term general hospital (02) | DRG 56 ==
LOC: ER 12:28 → ERHOLD 12:29 → EOR 12:29 → MEDS 12:29
PROVIDERS: Emergency Medicine; Internal Medicine; Nurse Practitioner Acute Care; Student in an Organized Health Care Education/Training Program; ADMIT Internal Medicine
DX: G91.2 (Idiopathic) normal pressure hydrocephalus (principal); G92.8 Other toxic encephalopathy; E87.20 Acidosis, unspecified; N17.9 Acute kidney failure, unspecified; E87.1 Hypo-osmolality and hyponatremia; I82.401 Acute embolism and thrombosis of unspecified deep veins of right lower extremity; F03.93 Unspecified dementia, unspecified severity, with mood disturbance; Z20.822 Contact with and (suspected) exposure to COVID-19; E11.621 Type 2 diabetes mellitus with foot ulcer; D63.8 Anemia in other chronic diseases classified elsewhere; L97.519 Non-pressure chronic ulcer of other part of right foot with unspecified severity; E86.0 Dehydration; E11.51 Type 2 diabetes mellitus with diabetic peripheral angiopathy without gangrene; I95.9 Hypotension, unspecified; Z87.891 Personal history of nicotine dependence; Z86.718 Personal history of other venous thrombosis and embolism; Z79.4 Long term (current) use of insulin; Z79.82 Long term (current) use of aspirin; Z79.899 Other long term (current) drug therapy
CPT/HCPCS: 0241U; 36415; 70450; 70551; 73620; 80048; 80053; 80069; 81001; 82947; 83605; 83735; 85025; 85027; 87086; 96372; 97110; 97129; 97162; 97166; 97530; 97530-CQ; 99285-25; A9270; G0378; J1815; J7030; Q3014

== ENCOUNTER 2022-02-07 11:56 | Observation (INO) | payer MEDICARE, OTHER ==
[~2022-02-07] VITALS: Ht 188 cm; Wt 108.6 kg
[~2022-02-07 11:56] MED LIST changes: +CARVEDILOL12.5 MG PO; +GLUCOPHAGE1000 M1 PO; +SEROQUEL50 MG PO
[2022-02-07 13:03] LABS: Source, Urine Straight Cath
[2022-02-07 13:07] LABS: BASOPHILS ABSOLUTE AUTO 0.04 K/mm3 (0.00-0.23); BASOPHILS PERCENT AUTO 0 % (0-2); EOSINOPHILS PERCENT AUTO 2 % (0-6); Hematocrit 30.6 % (37.0-53.0); Hemoglobin 9.8 g/dL (13.5-17.5); IMMATURE GRAN ABSOLUTE AUTO 0.02 K/mm3 (0.00-0.10); IMMATURE GRAN PERCENT AUTO 0 % (0-1); LYMPHOCYTES ABSOLUTE AUTO 1.83 K/mm3 (0.84-5.20); LYMPHOCYTES PERCENT AUTO 19 % (21-46); MONOCYTES ABSOLUTE AUTO 0.91 K/mm3 (0.16-1.47); MONOCYTES PERCENT AUTO 9 % (4-13); Mean Corpuscular HGB 27.8 pg (26.0-34.0); Mean Corpuscular Volume 87 fL (80-100); Mean Platelet Volume 8.9 fL (9.1-12.4); NEUTROPHILS ABSOLUTE AUTO 6.87 K/mm3 (1.96-9.15); NEUTROPHILS PERCENT AUTO 70 % (41-73); Platelet Count 290 K/mm3 (150-400); RDW Coefficient Variation 14.3 % (11.7-14.2); RDW Standard Deviation 45.2 fL (35.1-46.3); Red Blood Cell Count 3.53 M/mm3 (4.30-5.90); White Blood Cell Count 9.87 K/mm3 (4.00-11.30)
[2022-02-07 13:11] LABS: Appearance, Urine Hazy (Clear); Bilirubin, Urine Neg (Neg); Blood, Urine 3+ (Neg); Color, Urine Yellow (P-Yellow); Glucose Qualitative, Urine Neg (Neg); Ketones, Urine Neg (Neg); Leukocyte Esterase, Urine 3+ (Neg); Nitrite, Urine Neg (Neg); Protein, Urine 2+ (Neg); Specific Gravity, Urine 1.015 (1.003-1.022); Urobilinogen, Urine NORM (Normal)
[2022-02-07 13:24] LABS: White Blood Cells, Urine 25-50 /hpf (0-5)
[2022-02-07 13:25] LABS: Bacteria Few /hpf; Squamous Epithelial Cells Few /hpf (Few); Yeast/Fungi Urine Many /hpf
[2022-02-07 13:26] LABS: Renal Epithelial Rare /hpf (0-Rare)
[2022-02-07 13:38] LABS: Albumin, Blood 2.1 g/dL (3.4-5.0); Albumin/Globulin Ratio 0.4 (0.8-1.8); Bilirubin, Total 0.4 mg/dL (0.1-1.0); Bun/Creatinine Ratio 23.4 (12.0-20.0); Calcium, Blood 8.9 mg/dL (8.5-10.1); Creatinine, Blood 0.77 mg/dL (0.60-1.20); Globulin, Blood 5.4 g/dL (2.2-4.0); Potassium, Blood 3.8 mmol/L (3.5-5.5); Total Protein, Blood 7.5 g/dL (6.4-8.2)
[2022-02-07] MEDS ORDERED: CARVEDILOL6.25 MG PO (17:06)
[2022-02-07] MEDS ORDERED: BASAGLAR K100 UNIT/8 SC (17:06)
[2022-02-07] MEDS ORDERED: ATOR40TA PO ×2 (17:06→17:07)
[2022-02-07] MEDS ORDERED: DIVALPROEX SOD500 M2 PO (17:07)
[2022-02-07] MEDS ORDERED: RISPERIDONE2 M9 PO (17:07)
[2022-02-07] MEDS ORDERED: ELIQUIS5 M3 PO (17:07)
[2022-02-08 11:08] LABS: Influenza A, PCR NEGATIVE (NEGATIVE); Influenza B, PCR NEGATIVE (NEGATIVE); Resp Syncytial Virus, PCR NEGATIVE (NEGATIVE); SARS-Cov-2 (COVID-19) PCR, MMC NEGATIVE (NEGATIVE)
--- NOTE | 2022-02-09 04:33 | NUR ---
SHIFT SUMMARY PATIENT IS ALERT AND ORIENTED TO PERSON, PLACE, NOT TIME OR SITUATION. PATIENT IS A RECENT SOCIAL ADMIT. PATIENT HAS WOUNDS OF VARIOUS STAGES OF HEALING. PICTURES IN CHART. BANDAGES REWRAPPED AND ADDRESSED ON ADMIT. VITAL SIGNS REVIEWED. PATIENT HAS NOT HAD ANY ACUTE EVENTS THIS SHIFT. PATIENT HAS NOT COMPLAINED OF PAIN, NAUSEA, SOB OR VOMITTING THIS SHIFT. BED IN LOCKED AND LOWEST POSITION. CALL LIGHT IN PLACE.
[2022-02-09 05:08] LABS: BASOPHILS ABSOLUTE AUTO 0.04 K/mm3 (0.00-0.23); BASOPHILS PERCENT AUTO 0 % (0-2); EOSINOPHILS ABSOLUTE AUTO 0.27 K/mm3 (0.00-0.68); EOSINOPHILS PERCENT AUTO 2 % (0-6); Hematocrit 31.5 % (37.0-53.0); Hemoglobin 10.4 g/dL (13.5-17.5); IMMATURE GRAN ABSOLUTE AUTO 0.03 K/mm3 (0.00-0.10); IMMATURE GRAN PERCENT AUTO 0 % (0-1); LYMPHOCYTES ABSOLUTE AUTO 1.84 K/mm3 (0.84-5.20); LYMPHOCYTES PERCENT AUTO 16 % (21-46); MONOCYTES ABSOLUTE AUTO 1.17 K/mm3 (0.16-1.47); MONOCYTES PERCENT AUTO 10 % (4-13); Mean Corpuscular HGB 27.8 pg (26.0-34.0); Mean Corpuscular Volume 84 fL (80-100); Mean Platelet Volume 8.9 fL (9.1-12.4); NEUTROPHILS ABSOLUTE AUTO 8.09 K/mm3 (1.96-9.15); NEUTROPHILS PERCENT AUTO 71 % (41-73); Platelet Count 261 K/mm3 (150-400); RDW Coefficient Variation 14.1 % (11.7-14.2); RDW Standard Deviation 43.3 fL (35.1-46.3); Red Blood Cell Count 3.74 M/mm3 (4.30-5.90); White Blood Cell Count 11.44 K/mm3 (4.00-11.30)
[2022-02-09 05:51] LABS: Percent Saturation 17.5 % (20.0-50.0)
[2022-02-09 05:55] LABS: Thyroid Stimulating Hormone 0.303 uIU/mL (0.360-4.800)
--- NOTE | 2022-02-09 08:28 | NUR ---
CALLED DR HERNANDEZ- SBP GREATLY REDUCED FROM PREVIOUS. PT HAD AN INCONTINENT BLACK TARRY STOOL. RECIEVED ORDER FOR OANH. SENDING THE STOOL TO THE LAB.
--- NOTE | 2022-02-09 09:33 | NUR ---
CALLED DR HERNANDEZ- PT C/O FEELING DIZZY WHILE SITTING IN THE CHAIR, LIKE HE WAS GOING TO PASS OUT. 2 STAFF ASSISTED THE PT BACK TO BED, VITALS RECHECKED 80'S/70'S. SPOKE TO DR JAEGER ORDER FOR 1L FLUID BOLUS, IV ACCESS GAINED. ORDER RECIEVED TO HOLD COREG AND ELIQUIS AT THIS TIME WILL CTM. PT STILL STATES BEING DIZZY AND TIRED WHILE LYING FLAT.
[2022-02-09 10:54] LABS: Stool Occult Blood Guaiac 1 Pos (Neg)
--- NOTE | 2022-02-09 12:38 | NUR ---
CALLED DR HERNANDEZ- PHYSICAL THERAPY CAME TO WORK WITH THE PT AND CONVEYED CONCERN OF THE LEFT KNEE PATELLA NOT TRACKING LIKE IT SHOULD, MAY BE A CONTRIBUTING FACTOR FOR ALL THE PT RECENT, FREQUENT FALLS.
[2022-02-09 13:22] LABS: Hematocrit 31.9 % (37.0-53.0); Hemoglobin 10.5 g/dL (13.5-17.5)
[2022-02-09 18:18] LABS: Hematocrit 29.3 % (37.0-53.0); Hemoglobin 9.6 g/dL (13.5-17.5)
--- NOTE | 2022-02-09 19:28 | NUR ---
SHIFT SUMMARY- SPOKE TO DR HERNANDEZ ABOUT PT LOW BP THIS EVENING, COREG DOSE WAS CHANGED. PT HAS DENIED ANY PAIN T/O THE SHIFT. HE DID HAVE SOME LOW PRESSURES (MD AWARE SEE PREVIOUS NOTES FOR DETAILS) PT RECIEVED A 1L FLUID BOLUS TODAY, PRESSURES BETTER SINCE THEN. IV PLACED, INFILTRATED AND A NEW ONE WAS PLACED. PT IS A 2P MAX ASSIST INCONTINENT OF BLACK TARRY STOOLS (MD AWARE). PT IN BED AT THE TIME OF BEDSIDE REPORT. NO S&S OF DISTRESS NOTED AT THIS TIME. NIGHT RN AWARE OF THE DAYS EVENTS INCLUDING THE BLACK TARRY STOOL.
--- NOTE | 2022-02-10 03:49 | NUR ---
SHIFT SUMMARY NO OVERNIGHT EVENTS. VITALS STABLE, BP IN NORMAL RANGE. PT DENIES DIZZINESS AT REST IN BED. NO BOWEL MOVEMENT THIS SHIFT. PT USING URINAL. DRSG TO BLE C/D/I. PT ORIENTED X3, APPROPIATE. ABLE TO MAKE NEEDS KNOWN. WILLL CONTINUE TO MONITOR.
[2022-02-10 05:52] LABS: Hematocrit 30.8 % (37.0-53.0); Hemoglobin 9.6 g/dL (13.5-17.5); Mean Corpuscular HGB Conc 31.2 g/dL (31.5-36.5); Mean Corpuscular Volume 87 fL (80-100); Mean Platelet Volume 9.3 fL (9.1-12.4); Platelet Count 252 K/mm3 (150-400); RDW Coefficient Variation 14.2 % (11.7-14.2); RDW Standard Deviation 44.6 fL (35.1-46.3); Red Blood Cell Count 3.56 M/mm3 (4.30-5.90); White Blood Cell Count 10.55 K/mm3 (4.00-11.30)
[2022-02-10 06:17] LABS: Albumin, Blood 1.9 g/dL (3.4-5.0); Anion Gap 5 mmol/L (6-16); Blood Urea Nitrogen 21 mg/dL (8-24); Bun/Creatinine Ratio 26.5 (12.0-20.0); CO2, Blood 31 mmol/L (21-32); Calcium, Blood 8.8 mg/dL (8.5-10.1); Chloride, Blood 104 mmol/L (98-108); Creatinine, Blood 0.79 mg/dL (0.60-1.20); Glomerular Filtration Rate 102 (60-); Glucose, Blood 232 mg/dL (70-99); Phosphorus, Blood 2.8 mg/dL (2.5-4.9); Potassium, Blood 3.7 mmol/L (3.5-5.5); Sodium, Blood 140 mmol/L (136-145)
--- NOTE | 2022-02-10 18:40 | NUR ---
CALLED DR MAGANA- PT HAS AN ORDER FOR SCD'S. PT HAS WEEPING WOUNDS ON THE LLE AND A CHRONIC DVT IN THE RIGHT. SPOKE TO DR MAGANA AND WAS TOLD TO HOLD OFF ON SCD'D ANOTHER OPTION IS BEING SOUGHT.
--- NOTE | 2022-02-10 20:05 | NUR ---
SHIFT SUMMARY- PT ALERT AND ORIENTED TO SELF AND CAN MAKE HIS NEEDS KNOWN. FREQUENT SAFETY CHECKS, PT HAS A BED ALARM BEING USED. PODIATRY CONSULTED TODAY. PT STATED THE DOCTOR TOLD HIM HE WAS GOING TO TAKE HIM TO SURGERY TOMORROW. AFTER THAT VISIT THE PT CALLED OUT FOR STAFF TO CHANGE THE TV HEATHER. PT STATED THERE WAS A SHOW ON WHERE WOMEN WERE GETTING THEIR FEET CHOPPED OFF AND HE COULD NOT CHANGE THE HEATHER. TV WAS NOT ON. ASSISTED THE PT TO TURN ON THE TV AND PUT ON A COMEDY, WHICH SEEMED TO RESOLVE THE ISSUE. NO FURTHER ISSUES WERE NOTED. PT IN BED AT THE TIME OF SHIFT CHANGE NO S&S OF DISTRESS NOTED, PASSED ON TO NIGHT RN IN REPORT.
[2022-02-11 04:56] LABS: Hemoglobin 9.6 g/dL (13.5-17.5)
--- NOTE | 2022-02-11 06:02 | NUR ---
A/OX3; DISORIENTED TO DATE/TIME AND FORGETFUL. SLOW TO RESPOND. COOPERATIVE AND CALM THIS SHIFT. DENIES PAIN AT THIS TIME. 2X MAX ASSIST WITH GAITBELT TO PIVOT TRANSFER PER REPORT. INC BLACK TARRY BM THIS SHIFT. CONDOM CATH PLACED OVERNIGHT FOR FREQUENT BED CHANGES D/T SPILLING OF URINAL. LLE AND L HEEL DRSGS ARE CDI. SLEEP PROMOTED. BED ALARM SET, CALL LIGHT IN REACH, ENCOURAGED TO MAKE NEEDS KNOWN.
--- NOTE | 2022-02-11 19:54 | NUR ---
SHIFT SUMMARY: PT A&O X3-4, SLOW TO RESPOND, DROWSEY,PLEASANT AND FOLLOWS COMMANDS. PT EVALUATED PT, PT HAS LIMITED LLE ROM <60 DEGREES. PT RECOMMENED LLE STRENGTHING IN BED, SEE PT NOTES. PT HAD GI CONSULTATION, NPO BY MIDNIGHT FOR ENDOSCOPE IN MORNING. PT RECEVIED MEDICATIONS WITHOUT DIFFICULITY. WOUND CARE EVALUATED LLE WOUND, SEE WOUND CARE NOTES. PT IN BED WITH CALL LIGHT WITHIN REACH.
--- NOTE | 2022-02-12 04:02 | NUR ---
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 PT SLEPT T/O THE NIGHT. DENIES NEED F/INTERVENTION. CONDOM CATH IN PLACE. PM MEDS W/APPLESAUCE. PT NPO SINCE MIDNIGHT. PT CALLS APPROPRIATELY F/NEEDS. RETURNED PT CELL PHONE TO HIM FROM [facility]; AT BEDSIDE. CALL LIGHT IN REACH.
[2022-02-12 05:52] LABS: Hematocrit 29.9 % (37.0-53.0); Hemoglobin 9.5 g/dL (13.5-17.5)
[2022-02-12 06:29] LABS: Free Thyroxine 1.03 ng/dL (0.70-1.60); Triiodothyronine, Free 1.68 pg/mL (2.18-3.98)
--- NOTE | 2022-02-12 14:38 | NUR ---
02/12/22 1438 Jodi Dickey History, Chart, Medications and Allergies reviewed before start of procedure. MONITOR INTACT WITH CONTINUOUS PULSE OXIMETRY AND INTERMITTENT BP. 3-LEAD EKG REVIEWED WITH PHYSICIAN PRIOR TO START OF PROCEDURE. O2 VIA N/C INTACT THROUGHOUT SEDATION/PROCEDURE. Bite Block Placed. LIDOCAINE SPRAYED TO BACK OF THE THROAT PRIOR TO PROCEDURE PER MD ORDER. SEDATION PROVIDED BY ANESTHESIA - SEE DR. CRAWFORD'S RECORD.
--- NOTE | 2022-02-12 15:07 | NUR ---
1500HRS. RETURNED FROM EGD. PT DROWSY, OPEN TO FOLLOW SIMPLE INSTRUCTIONS. VITAL SIGNS CHECKED. PT ABLE TO ANSWER QUESTIONS APPROPRIATELY. REPORT FROM JUAN BORJA. NO PO FLUIDS YET. BED LOW. CALL LIGHT IN REACH.
--- NOTE | 2022-02-12 19:54 | NUR ---
SHIFT SUMMARY: PT A&O X3-4, PLEASANT, TEARFUL AT TIMES, AND COOPERATIVE. PT 2 PERSON ASSIST TO BEDSIDE, PT UNABLE TO HOLD SELF UPRIGHT TO SIT UP IN CHAIR. PT HAD ENDOSCOPY COMPLETED AT 1400, PT RETURNED AWAKE AND STABLE. PT HAD NO COMPLAINTS OF PAIN THROUGHOUT SHIFT. PT KEPT LEGS ELEVATED THROUGHOUT THE SHIFT. PT HAD INCONTIENT EPISODES OF URINE AND BOWEL. PT TEARFUL IN THE AFTERNOON TALKING ABOUT FATHER. PT HAD IMPROVE OF MOOD THROUGHOUT THE DAY. PT IN BED WITH CALL LIGHT WITHIN REACH.
--- NOTE | 2022-02-13 00:05 | NUR ---
DRESSING CHANGE PER ORDERS TO BILATERAL LOWER EXTREMITIES. PT HAS BEEN PLEASANT, AND COOPERATIVE WITH CARE. PT HAS GENERALIZED WEAKNESS. CALL LIGHT WITHIN REACH. BED IN LOW POSITION. FLUIDS AT BEDSIDE. PT IS USING THE CALL LIGHT APPROPRIATELY.
--- NOTE | 2022-02-13 07:14 | NUR ---
SHIFT SUMMARY - NO ACUTE CHANGES THROUGHOUT THIS SHIFT. DRESSING CHANGE TO BLE PER 'S ORDERS - PT TOLERATED THIS PROCEDURE WITHOUT COMPLICATIONS. PT DENIED REQUEST FOR PAIN MEDICATION. PT HAS BEEN APPROPRIATE IN HIS BEHAVIOR THROUGHOUT THE NIGHT. CONDOM CATH IN PLACE, PER PT REQUEST. LR TKO INFUSING WITHOUT COMPLICATIONS. CALL LIGHT WITHIN REACH. BED IN LOW POSITION. FLUIDS AT BEDSIDE. REPORT GIVEN TO AM SHIFT RN.
--- NOTE | 2022-02-13 20:08 | NUR ---
SHIFT SUMMARY: PT A&O X4, PLEASANT AND TEARFUL AT TIMES. PT UP IN CHAIR FOR LUNCH, 2 PERSON ASSIST WITH FWW AND GAIT BELT. PT HAD DIFFICULTY LIFTING FEET AT TIMES DURING TRANSFER. PT REPOSITIONED FREQUENTLY TO RELIEVE PRESSURE POINTS ON HIS BUTTOCKS. PT RECEVIED WOUND CARE TO LEFT HEEL, LEG AND RIGHT AMPUTATED TOE. PT TOOK MEDS WHOLE WITH WATER. PT WILL BE NPO AT MIDNIGHT, DEBRIDEMENT SCHDULED FOR 02/14/22 TO LEFT HEEL. PT IN BED WITH CALL LIGHT WITHIN REACH AND BED ALARM SET.
--- NOTE | 2022-02-14 03:22 | NUR ---
CROP INSURANCE CLAIMS ADJUSTER SUMMARY NO ACUTE CHANGES. PT APPEARED MORE POSITIVE THIS EVENING. PT SLEPT WELL T/O THE NIGHT. TWO MED-LARGE SOFT/FORMED BOWEL MOVEMENTS. CHANGED AND NEW CONDOM CATHETER APPLIED EACH TIME. PT HAS REDDNESS ON COCCYX AND SMALL DIME SIZED OPEN SKIN; MEPILEX PLACED. PT AWARE OF WOUND DEBRIDEMENT 02/14/22--PT NPO SINCE MIDNIGHT. PT ABLE TO MAKE NEEDS KNOWN AND CALLS APPROPRIATELY. CALL LIGHT IN REACH.
--- NOTE | 2022-02-14 14:27 | NUR ---
02/14/22 1427 Leroy Stallworth PT IN LAZY LATERAL POSITION. PT ON SCHEDULED ROCEPHIN.
--- NOTE | 2022-02-14 19:34 | NUR ---
SHIFT SUMMARY: PT A/O X 3 2 ASSIST TO BSC. PLEASANT AND COOPERATIVE WITH CARE. PT HAD I&D OF LEFT HEEL THIS AFTERNOON. HE TOLERATED SURGERY WELL. POST SURGERY VITALS HAVE BEEN SOFT IN THE 90'S BUT PT IS ASYMPTOMATIC. PT DID ARRIVE BACK ON OXYGEN FROM THE OR BUT HAS SINCE BEEN WEANED OFF WITH SATS IN THE HIGH 90'S. PT BLOOD SUGARS HAVE BEEN IN THE 100'S. PT ATE WELL ONCE ABLE TO EAT AFTER HIS SURGERY. DRESSING TO LEFT HEEL AT SHIFT CHANGE WAS CDI. PT REPORTS HE DOES NOT FEEL ANY PAIN AND HAS CLAIMED THIS THROUGHOUT THE DAY. GOOD PULSES AND FEET ARE WARM, ALSO NO SIGNS OF BLEEDING TO LEFT FOOT.
--- NOTE | 2022-02-15 07:17 | NUR ---
SHIFT SUMMARY A&O X2-3. VSS. DENIES PAIN. DRSG TO LEFT LEG C/D/I. PT HAD SMEAR ON HIS BRIEF. BRIEF AND LINEN CHANGED. REPOSITIONED PT. BED ALARM ON. WILL CONTINUE WITH PLAN OF CARE.
--- NOTE | 2022-02-15 10:30 | NUR ---
SPOKE TO SUGEY AT DR. FLOYD'S OFFICE REQUESTED BY DR. MAGANA. PER SUGEY FLOYD STATES PT CAN RESUME XARELTO TODAY. DR. FLOYD WILL COME IN TOMORROW 02/16/22 TO REDRESS L HEEL WOUND. DR. MAGANA NOTIFIED OF DR. FLOYD'S RESPONSE. ALSO INFORMED DR. MAGANA OF CULTURE REPORT INDICATING MRSA. PLACED PT IN CONTACT ISOLATION.
--- NOTE | 2022-02-15 17:57 | NUR ---
PT A/O X 3, 2 ASSIST WITH GB/WALKER. PT IS PLEASANT AND COOPERATIVE WITH CARE. PT REPORTED FEELING MORE TIRED THAN USUAL THROUGHOUT THE DAY. PT DID WORK WITH PT TODAY AND WAS UP IN CHAIR. WOUND CARE COMPLETED TO L ANTERIOR DOWD AND R FOOT. DRESSING TO L HEEL REMAINED CDI THROUGHOUT SHIFT. KEPT BOTH LEGS FLOATED ON PILLOWS TO OFFLOAD HEELS. PT DENIED PAIN THROUGHOUT SHIFT. HE DID COMPLAIN OF FEELING ACHY BUT REFUSED PAIN MEDICATIONS STATING THAT WASN'T WHAT HE NEEDED. PT GIVEN EXTRA PILLOWS FOR COMFORT AND PT DENIED ANY FURTHER NEEDS. BLOOD SUGARS CONTROLLED WITH CURRENT INSULIN REGIMEN. DR. FLOYD REPORTED HE WOULD COME IN TOMORROW TO CHANGE DRESSING TO LEFT HEEL.
--- NOTE | 2022-02-16 05:29 | NUR ---
SHIFT SUMMARY ALERT AND ORIENTED. VSS. DENIES PAIN. DRSG TO LEFT FOOT C/D/I. PT HAD MULTIPLE INCONTINENT URINE OUTPUT. BRIEFS CHANGED. PLEASANT AND COOPERATIVE. WILL CONTINUE WITH PLAN OF CARE. BED ALARM ON.
--- NOTE | 2022-02-16 11:47 | NUR ---
DR. FLOYD MADE VISIT TO PT TODAY. HE GAVE VO TO CALL WOUND CLINIC TO HAVE THEM PLACE WOUND VAC TO LEFT HEEL EITHER TODAY OR MONDAY. UNTIL WOUND VAC PLACED DO DAILY DRESSING CHANGES. ALSO PT IS TO BE TOE TOUCH WEIGHT BEARING ON LEFT FOOT. LEFT MESSAGE WITH WOUND CLINIC AT 1100 TODAY. AWAITING RETURN CALL.
[2022-02-16 16:00] LABS: Valproic Acid 46.7 ug/mL (50.0-100.0)
--- NOTE | 2022-02-16 16:13 | NUR ---
L HEEL WOUND CLEANSED WITH NS, WOUND VAC PLACED PER PROTOCOL. ONE PIECE OF BLACK FOAM TO WOUND BED, VAC SET TO CONTINUOUS 120MMHG. PT SLEPT THROUGH MOST OF PLACEMENT. WOUND PHOTO AND ASSESSMENT IN HARD CHART. VAC ORDERS IN [facility]. NEXT CHANGE SUNDAY 02/11
[2022-02-16 16:49] LABS: Base Excess Venous 5.9 mmol/L; Bicarbonate Venous 29.5 mmol/L (24.0-30.0); PCO2 Venous 35.8 mmHg (38-42); pH Blood Venous 7.51 (7.34-7.37)
--- NOTE | 2022-02-16 18:54 | NUR ---
SHIFT SUMMARY: PT A/O X 3 2 ASSIST FOR PIVOT TX. PT HAS BEEN VERY LETHARGIC WORSE TODAY THAN YESTERDAY. PT IS ALSO NOT EATING WELL OR DRINKING FLUIDS WELL. PT HAD WOUND VAC PLACED TODAY AND SLEPT THROUGH PROCEDURE. HE WILL AWAKEN BRIEFLY AND ANSWER YOUR QUESTIONS BUT GOES BACK TO SLEEP. WHILE ASLEEP PT CAN BE HEARD SNORING AT TIMES AND THERE ARE SMALL PAUSES TO HIS BREATHING. PT HAD VBG AND DEPAKOTE LEVEL CHECKED TODAY. DR. RAMIREZ AWARE OF RESULTS.
[2022-02-17 05:27] LABS: BASOPHILS ABSOLUTE AUTO 0.06 K/mm3 (0.00-0.23); BASOPHILS PERCENT AUTO 1 % (0-2); EOSINOPHILS ABSOLUTE AUTO 0.29 K/mm3 (0.00-0.68); EOSINOPHILS PERCENT AUTO 3 % (0-6); Hematocrit 29.1 % (37.0-53.0); Hemoglobin 9.5 g/dL (13.5-17.5); IMMATURE GRAN ABSOLUTE AUTO 0.03 K/mm3 (0.00-0.10); IMMATURE GRAN PERCENT AUTO 0 % (0-1); LYMPHOCYTES ABSOLUTE AUTO 1.92 K/mm3 (0.84-5.20); LYMPHOCYTES PERCENT AUTO 21 % (21-46); MONOCYTES ABSOLUTE AUTO 0.83 K/mm3 (0.16-1.47); MONOCYTES PERCENT AUTO 9 % (4-13); Mean Corpuscular HGB 27.5 pg (26.0-34.0); Mean Corpuscular HGB Conc 32.6 g/dL (31.5-36.5); Mean Corpuscular Volume 84 fL (80-100); Mean Platelet Volume 9.2 fL (9.1-12.4); NEUTROPHILS PERCENT AUTO 66 % (41-73); Platelet Count 260 K/mm3 (150-400); RDW Coefficient Variation 14.3 % (11.7-14.2); RDW Standard Deviation 43.8 fL (35.1-46.3); Red Blood Cell Count 3.45 M/mm3 (4.30-5.90); White Blood Cell Count 9.13 K/mm3 (4.00-11.30)
[2022-02-17 05:46] LABS: Bun/Creatinine Ratio 20.4 (12.0-20.0); Calcium, Blood 8.8 mg/dL (8.5-10.1); Creatinine, Blood 0.88 mg/dL (0.60-1.20); Magnesium, Blood 1.8 mg/dL (1.6-2.4); Potassium, Blood 3.7 mmol/L (3.5-5.5)
--- NOTE | 2022-02-17 07:44 | NUR ---
KNITTED GARMENT FINISHER SUMMARY PT REMAINS SLEEPY/LETHARGIC T/O SHIFT. PT INCONT OF BOWEL AND BLADDER. HAD TWO LOOSE WATERY STOOLS OVERNIGHT. PT DID NOT NOTIFY NURSE/AID OF NEED TO CHANGE BRIEF; PT UNAWARE HE HAD BOWEL MOVEMENT. NO URINE OUTPUT F/FIRST HALF OF SHIFT; BALDDER SCAN SHOWED 821 MLS; PT DENIED FEELING HE HAD TO PEE BUT WAS ABLE TO VOID. PT RESPONSE TO QUESTIONS NOT ALWAYS APPROPRIATE; RESPONSES SLOW. CALL LIGHT IN REACH.
--- NOTE | 2022-02-17 17:44 | NUR ---
SHIFT SUMMARY PATIENT DENIES PAIN, NAUSEA, AND SHORTNESS OF BREATH. PATIENT IS A 2P WITH A FWW. PATIENT IS TOE TOUCH TO LEFT FOOT. PATIENT HAS WOUND VAC TO LEFT HEEL, CHANGED 02/16. PATIENT WORKED WITH PT TODAY, RECOMMENDING SNF. PATIENT IS A&O X3, OCCASSIONALLY FORGETFUL. PATIENT IS EATING AND DRINKING WELL. PATIENT IS VERY PLEASANT AND COOPERATIVE WITH CARE.
--- NOTE | 2022-02-18 06:47 | NUR ---
CHILDREN COUNSELOR SUMMARY PT TEARFUL AND MORE LISTLESS T/O THE NIGHT. PT HAD TWO XTRA LARGE BM--MIX OF LOOSE/FORMES. PT NOT CALLING F/ASSISTANCE WHEN SOILED. PT BLADDER FELT DISTENDED--PT DENIED HAVING URGE TO VOID. BLADDER SCAN SHOWED 745 MLS OF URNINE. CALLED [address]--NEW ORDER F/BLADDER SCAN AND STRAIGHT CATH >450. PT WAS EVENTUALLY ABLE TO VOID ON OWN. CALL LIGHT IN REACH.
--- NOTE | 2022-02-18 17:13 | NUR ---
SHIFT SUMMARY: PT ALERT AND ORIENTED X3-4. HE WAS FRUSTRATED THIS MORNING STATING HE WANTED TO GET OUT OF HERE BUT WAS ABLE TO CALM DOWN AFTER A WHILE. PT DENIES PAIN AND NAUSEA/VOMITING THIS SHIFT. PT CONTINUES TO BE A 2 PERSON TRANSFER WITH THE USE OF A WALKER. PT HAS WOUND VAC TO LEFT HEEL THAT WAS CHANGED AT 1700 WITH CHARGE NURSE. PT HAS BEEN COORPERATIVE WITH ALL CARE. CALL LIGHT IN REACH. BED IN LOWEST POSITION. WILL CONTINUE TO MONITOR.
--- NOTE | 2022-02-19 04:12 | NUR ---
SHIFT SUMMARY: PT A&OX3 WITH MOMENTS OF CONFUSION, MAKING STATEMENTS THAT DO NOT CORRELATE WITH CONVERSATION. PT COMPLAINS OF DIZZIENESS WHEN ROLLED IN BED BUT SUBSIDES AFTER BEING REPLACED ON BACK. PT REPOSITIONED AND CHANGED Q2-3H DURING SHIFT. WOUND VACC IN PLACE ON LEFT HEEL. FOAM COMPRESSED. DRESSING ON LEFT FOOT CHANGED DUE TO FALLING OFF. NO ACUTE CHANGES DURING THIS SHIFT.
[2022-02-19 05:48] LABS: BASOPHILS ABSOLUTE AUTO 0.05 K/mm3 (0.00-0.23); BASOPHILS PERCENT AUTO 1 % (0-2); EOSINOPHILS ABSOLUTE AUTO 0.44 K/mm3 (0.00-0.68); EOSINOPHILS PERCENT AUTO 4 % (0-6); Hematocrit 28.3 % (37.0-53.0); Hemoglobin 9.1 g/dL (13.5-17.5); IMMATURE GRAN ABSOLUTE AUTO 0.03 K/mm3 (0.00-0.10); IMMATURE GRAN PERCENT AUTO 0 % (0-1); LYMPHOCYTES ABSOLUTE AUTO 1.68 K/mm3 (0.84-5.20); LYMPHOCYTES PERCENT AUTO 17 % (21-46); MONOCYTES ABSOLUTE AUTO 0.91 K/mm3 (0.16-1.47); MONOCYTES PERCENT AUTO 9 % (4-13); Mean Corpuscular HGB 27.7 pg (26.0-34.0); Mean Corpuscular HGB Conc 32.2 g/dL (31.5-36.5); Mean Corpuscular Volume 86 fL (80-100); Mean Platelet Volume 9.1 fL (9.1-12.4); NEUTROPHILS PERCENT AUTO 69 % (41-73); Platelet Count 295 K/mm3 (150-400); RDW Coefficient Variation 14.5 % (11.7-14.2); RDW Standard Deviation 45.8 fL (35.1-46.3); Red Blood Cell Count 3.29 M/mm3 (4.30-5.90); White Blood Cell Count 10.11 K/mm3 (4.00-11.30)
[2022-02-19 06:06] LABS: Bun/Creatinine Ratio 17.6 (12.0-20.0); Calcium, Blood 8.4 mg/dL (8.5-10.1); Creatinine, Blood 0.97 mg/dL (0.60-1.20); Potassium, Blood 3.9 mmol/L (3.5-5.5)
--- NOTE | 2022-02-19 18:30 | NUR ---
SHIFT SUMMARY PT SLEEPING DURING SHIFT REPORT. PT CONTINUED TO SLEEP MOST OF THE DAY. PT DID WAKE BRIEFLY FOR CARE, BUT WAS DROWSY AND LETHARGIC. PT C/O DIZZINESS AT TIMES WELL. DR RAMIREZ HERE TO SEE PT THIS AM AND AGAIN LATER IN AFTERNOON. DR RAMIREZ NOTIFIED OF PT'S C/O DIZZINESS; MEDICATION ADJUSTED. PT AWAKE THIS EVENING AND TALKING ON THE PHONE. INCONTINENT OF BOWEL AND BLADDER. REPOSITIONED AND ELEVATED LE'S THRU OUT THE DAY. WOUND VAC PATENT. NO C/O. CALL LT IN REACH.
--- NOTE | 2022-02-20 07:37 | NUR ---
SHIFT SUMMARY PT AOX2. MOVES ALL FOUR EXTREMITIES, BLE WEAKER THAN BUE. PT EXPRESSES DESIRE TO REGAIN SOME STRENGTH AND STATES HE HAS DIFFICULTY DOING EXERCISES WHILE COVERED IN BLANKETS IN NIGHT. PT STATES HE IS USUALLY MORE ACTIVE AT NIGHT AT HOME. PT DENIES PAIN OTHER THAN SOME IN HIS R SHOULDER/ARM. WOUND VAC COMPRESSED T/O SHIFT. SCANT DRAINAGE. PT'S SKIN IS HOT AND DRY THIS AM, AFEBRILE. REMOVED BLANKETS. HEAT TURNED DOWN IN ROOM.
--- NOTE | 2022-02-20 19:55 | NUR ---
SHIFT SUMMARY PT AWAKE THIS AM DURING SHIFT REPORT. PT ALSO AWAKE THRU OUT THE DAY TODAY. MUCH IMPROVED FROM YESTERDAY. PT HAS BEEN ALERT AND INTERACTIVE WITH STAFF, STAYING AWAKE TO WATCH TV. REPOSITIONED THRU OUT THE DAY TO KEEP PT OFF BUTTOCKS. BED BATH AND LINEN CHANGE THIS AM. DR RAMIREZ HERE THIS AM TO SEE PT. NO NEW ORDERS TODAY. INCONTINENT OF BLADDER WITH ONLY A COUPLE OF SMEARS OF STOOL THIS SHIFT. NO C/O, MOSTLY PLEASANT TODAY. ONLY BRIEFLY IRRITABLE A COUPLE OF TIMES. CALL LT IN REACH. DENIED FURTHER NEEDS.
--- NOTE | 2022-02-21 04:53 | NUR ---
SHIFT SUMMARY PT A&O X 3- PT HAS WOUND VAC TO LEFT HEEL- PT TURNED Q2H- PT ABLE TO TELL STAFF WHEN HE IS UNCOMFORTABLE AND NEEDS REPOSITIONED AT TIMES- PT NEEDS TO BE ENCOURAGED TO ASSIST WHEN ADLS ARE DONE- PT UP MOST OF THE NIGHT WATCHING TV- NO C/O PAIN/NAUSEA, BED ALARM IN PLACE
--- NOTE | 2022-02-21 10:38 | NUR ---
WOUND VAC DRESSING TO L HEEL CHANGED. WOUND CLEANSED WITH NS. PERIWOUND AND SKIN UNDER FOAM TRACT PROTECTED WITH TRANSPARENT FILM. TWO PIECES OF BLACK FOAM PLACED. VAC SET TO CONTINUOUS 120 MMHG. SEAL ACHIEVED. CANISTER NOT CHANGED. PT TOLERATED WELL.
--- NOTE | 2022-02-21 16:30 | NUR ---
SHIFT SUMMARY NO ACUTE CHANGES THIS SHIFT, PT HAS BEEN RESTING IN HIS BED ALL DAY. PT CAME TO THE BEDSIDE TO WORK WITH HIM. HE IS AOX1-2, STILL CONFUSED AT TIMES. THE WOUND CLINIC CHANGES HIS WOUND VAC TODAY AND IS SCHEDULED TO DO SO AGAIN ON MONDAY. PT IS AWAITING PLACEMENT AND NO NEW DEVELOPMENTS THIS SHIFT. WILL REPORT TO ONCOMING NURSE.
--- NOTE | 2022-02-22 04:27 | NUR ---
SHIFT SUMMMARY PT A&O X 3- PT SLEPT T/O NIGHT- PT NEEDS TO BE ENCOURAGED TO ASSIST WITH DAILY ADLS-PT REPORTED FEELING INCREASED SLEEPINESS - PT CALLS WHEN BRIEF WET- PT TURNED Q2H- WOUND VAC LL HEEL, HEELS FLOATED BILAT
--- NOTE | 2022-02-22 17:28 | NUR ---
SHIFT SUMMARY PT HAS BEEN COOPERATIVE TODAY, PT GOT HIM UP IN THE CHAIR AND HE SPENT OF A PORTION OF THE AFTERNOON NAPPING IN THE CHAIR. HE C/O PAIN TWICE THIS SHIFT AND TYLENOL WAS ADMINISTERED. HE SAID THAT IT GAVE HIM RELIEF FROM HIS LEG PAIN. HE HAS HAD NO C/O N/V. WILL REPORT TO THE ONCOMING NURSE.
--- NOTE | 2022-02-23 04:19 | NUR ---
SHIFT SUMMARY PATIENT IS ALERT AND ORIENTED 2-3X. PATIENT HAS BEEN PLEASENT AND COOPERATIVE WITH CARE THIS SHIFT. PATIENT HAS BEEN SLEEPING MOST OF SHIFT. PATIENT HAS BEEN MEDICATED FOR PAIN THIS SHIFT. PATIENT HAS NOT COMPLAINED OF NAUSEA, VOMITTING, OR SOB THIS SHIFT. PATIENT HAS HAD NO ACUTE EVENTS THIS SHIFT. BED IN LOCKED AND LOWEST POSITION. CALL LIGHT IN PLACE. WILL MONITOR UNTIL SHIFT CHANGE.
--- NOTE | 2022-02-23 16:24 | NUR ---
WOUND CARE WOUND VAC HELD D/T NECROTIC TISSUE IN WOUND BED. HOSPITALIST NOTIFIED. PODIATRY WILL SEE PT IN THE AM. WOUND CLEANSED WITH NS, XEROFORM TO WOUND BED, COVERED ABD, ROLLED GAUZE.
--- NOTE | 2022-02-23 20:36 | NUR ---
SHIFT SUMMARY- WOUND CARE CAME TO SEE THE PT TODAY TO CHANGE THE WWOUND VAC AND NOTED SOME ESCHAR IN THE WOUND BED. CALLED MD TO SEE IF HE WOULD BE WILLING TO DO A BEDSIDE DEBRIDEMENT OF THE AREA. HE CONSULTED PODIATRY, THE RECOOPERER WILL BE IN TOMORROW MORING TO SEE THE PT. CONFIGURATION MANAGEMENT ADVISOR WAS TOLD TO HO;D OFF ON REPLACING THE WOUND VAC, THAT PODIATRY SHOULD REPLACE IT AFTER THEY DEBRIDE THE AREA TOMORROW MORNING. PER DR RAMIREZ. CONFIGURATION MANAGEMENT ADVISOR REDRESSED THE WOUND SO IT IS COVERED AT THIS TIME. PT IS INCONTINENT OF BOWEL AND BLADDER AND BUENO HAD SEVERAL VERY SOFT LUMPY/LOOSE STOOLS TODAY. PASSED ON IN REPORT TO NIGHT RN. PT REPOSITIONED AND CHANGED JUST PRIOR TO SHIFT CHANGE. NO S&S OF DISTRESS NOTED AT THE TIME OF SHIFT CHANGE.
--- NOTE | 2022-02-24 04:26 | NUR ---
SHIFT SUMMARY: VS WNL ON RA. MEDICATED PER EMAR. PLAN FOR DEBRIDEMENT AND WOUND VAC TODAY. PATIENT SLEPT INTERMITTENTLY T/O NIGHT. USES CALL LIGHT APPROPRIATELY AND OCCASIONALLY ACCIDENTALLY. INCONTINENT OF URINE AND BOWELS - SMALL CONDOM CATH IN PLACE DRAINING TO GRAVITY. CONTACT FOR MRSA. VERY WEAK AND REQUIRES FULL CARE. NO ADVERSE EVENTS THIS SHIFT. BED LOW WITH CALL LIGHT IN REACH. WILL CONTINUE TO MONITOR UNTIL REPORT TO DAY RN.
[2022-02-24 05:56] LABS: BASOPHILS ABSOLUTE AUTO 0.07 K/mm3 (0.00-0.23); BASOPHILS PERCENT AUTO 1 % (0-2); EOSINOPHILS PERCENT AUTO 5 % (0-6); Hematocrit 31.8 % (37.0-53.0); Hemoglobin 10.1 g/dL (13.5-17.5); IMMATURE GRAN ABSOLUTE AUTO 0.05 K/mm3 (0.00-0.10); IMMATURE GRAN PERCENT AUTO 1 % (0-1); LYMPHOCYTES ABSOLUTE AUTO 2.01 K/mm3 (0.84-5.20); LYMPHOCYTES PERCENT AUTO 20 % (21-46); MONOCYTES ABSOLUTE AUTO 0.89 K/mm3 (0.16-1.47); MONOCYTES PERCENT AUTO 9 % (4-13); Mean Corpuscular HGB 27.1 pg (26.0-34.0); Mean Corpuscular HGB Conc 31.8 g/dL (31.5-36.5); Mean Corpuscular Volume 85 fL (80-100); NEUTROPHILS ABSOLUTE AUTO 6.71 K/mm3 (1.96-9.15); NEUTROPHILS PERCENT AUTO 66 % (41-73); Platelet Count 277 K/mm3 (150-400); RDW Coefficient Variation 14.9 % (11.7-14.2); RDW Standard Deviation 45.4 fL (35.1-46.3); Red Blood Cell Count 3.73 M/mm3 (4.30-5.90); White Blood Cell Count 10.23 K/mm3 (4.00-11.30)
[2022-02-24 06:17] LABS: Bun/Creatinine Ratio 20.4 (12.0-20.0); Calcium, Blood 8.5 mg/dL (8.5-10.1); Creatinine, Blood 1.03 mg/dL (0.60-1.20); Potassium, Blood 4.1 mmol/L (3.5-5.5)
--- NOTE | 2022-02-24 19:44 | NUR ---
SHIFT SUMMARY- PT ALERT AND ORIENTED TO SELF AND PLACE, SOME CONFUSION OCCASSIONALLY. PT HAD A BEDSIDE DEBRIDEMENT COMPLETED THIS EVENING BY PODIATRY. PODIATRY DRESSED THE WOUND AFTER. CALLED STATE INSPECTOR AND LEFT A MESSAGE SO SHE WILL BE NOTIFIED IN THE MORNING THAT THIS WAS COMPLETED SO WOUND VAC CAN BE REPLACED. PLAN IS FOR THE PT TO DISCHARGE TO A FACILITY TOMORROW. PT HAD A CONDOM CATH FOR MOST OF THE SHIFT WICH WORKED VERY WELL UNTIL IT FELL OFF. THE CORRECT SIZE COULD NOT BE LOCATED TO REPLACE IT. PASSED ON TO NIGHT RN. NIGHT RN IS DOING THE COVID SWAB RIGHT NOW. THE PT IS IN BED, CALL LIGHT IN REACH BED IN LOW POSSITION ALARM SET FOR PT SAFETY, IV SL. NO CURRENT S&S OF DISTRESS NOTED.
[2022-02-24 21:22] LABS: SARS-Cov-2 (COVID-19) PCR, MMC NEGATIVE (NEGATIVE)
--- NOTE | 2022-02-25 06:43 | NUR ---
SHIFT SUMMARY PATIENT ALERT AND ORIENTED. MEDICATED PER EMAR FOR PAIN. HAD NO COMPLAINTS OF SHORTNESS OF BREATH. NO ACUTE ISSUES NOTED OVERNIGHT. CALL LIGHT WITHIN REACH. REPORT GIVEN TO ONCOMING RN.
[2022-02-25] MEDS ORDERED: XARELTO20 MG PO (11:59)
[2022-02-25] MEDS ORDERED: CARV3.125 PO (12:00)
[2022-02-25] MEDS ORDERED: FERSU300 PO (12:02)
[2022-02-25] MEDS ORDERED: HUMULIN R500 UNIT/2 SC (12:05)
[2022-02-25] MEDS ORDERED: PANT20 PO (12:06)
[2022-02-25] MEDS ORDERED: DULCOLAX400 MG/5 M PO (12:06)
[2022-02-25] MEDS ORDERED: VISBIOME 112.51 EACH PO (12:07)
[2022-02-25] MEDS ORDERED: SULTRIDS PO (12:07)
--- NOTE | 2022-02-25 16:01 | NUR ---
PT RESTING QUIETLY AT START OF SHIFT. WOKE EASILY FOR CARE. SITTING UP FOR BREAKFAST, PLEASANT AND CO-OP. PT TO D/C TO THIS AFTERNOON; COVID PROTOCOL COMPLETE AND NEG. WOUND CARE ORDERS FAXED AND SENT WITH PT FOR WOUND VAC PLACEMENT AT . NO ACUTE CHANGES TO REPORT. W/C TX SET UP BY SUPERINTENDENT OVERHEAD DISTRIBUTION. PT ASSISTED TO W/C VIA STAND PIVOT WITH INSURANCE PROCESSOR'S, AT 1415 WHEN TX ARRIVED. BELONGINGS SENT WITH PT.
== END 2022-02-25 14:11 ==
LOC: ER 11:56 → MEDS 11:57
PROVIDERS: Emergency Medicine; Family Medicine; Internal Medicine; Student in an Organized Health Care Education/Training Program; ADMIT Internal Medicine
PROC: 0DJ08ZZ Inspection of Upper Intestinal Tract, Via Natural or Artificial Opening Endoscopic (ICD-10-PCS; principal; 2022-02-12 14:00)
PROC: 0QBM0ZZ Excision of Left Tarsal, Open Approach (ICD-10-PCS; 2022-02-14)
DX: R53.1 Weakness (principal); D63.1 Anemia in chronic kidney disease; Z79.01 Long term (current) use of anticoagulants; M17.12 Unilateral primary osteoarthritis, left knee; E11.51 Type 2 diabetes mellitus with diabetic peripheral angiopathy without gangrene; Z87.891 Personal history of nicotine dependence; D50.9 Iron deficiency anemia, unspecified; I95.9 Hypotension, unspecified; F31.5 Bipolar disorder, current episode depressed, severe, with psychotic features; L89.610 Pressure ulcer of right heel, unstageable; N39.0 Urinary tract infection, site not specified; K92.1 Melena; E88.09 Other disorders of plasma-protein metabolism, not elsewhere classified; K29.80 Duodenitis without bleeding; I82.501 Chronic embolism and thrombosis of unspecified deep veins of right lower extremity; Z20.822 Contact with and (suspected) exposure to COVID-19
CPT/HCPCS: 0241U; 36415; 73564; 73620; 80048; 80053; 80069; 80164; 81001; 82272; 82550; 82728; 82803; 82947; 83540; 83550; 83605; 83735; 84439; 84443; 84481; 85014; 85018; 85025; 85027; 87040; 87071; 87075; 87077; 87086; 87106; 87147; 87186; 87205; 88305; 94760; 96361; 96365; 97110; 97110-CQ; 97112; 97116; 97162; 97530; 97530-CQ; 99285-25; A9270; G0378; J0696; J1815; J2001; J2250; J2370; J2405; J2704; J2765; J2795; J3010; J7030; J7120; U0004

== ENCOUNTER 2022-03-16 09:35 | Inpatient (IN) | payer MEDICARE, OTHER ==
[~2022-03-16] VITALS: Ht 182.9 cm; Wt 96.0 kg
[~2022-03-16 09:35] MED LIST changes: +ATOR40TA PO; +BASAGLAR K100 UNIT/8 SC; +CARVEDILOL6.25 MG PO; +DIVALPROEX SOD500 M2 PO; +DULCOLAX400 MG/5 M PO; +ELIQUIS5 M3 PO; +FERSU300 PO; +HUMULIN R500 UNIT/2 SC; +PANT20 PO; +RISPERIDONE2 M9 PO; +SULTRIDS PO; +XARELTO20 MG PO
[2022-03-16 09:56] LABS: BASOPHILS ABSOLUTE AUTO 0.06 K/mm3 (0.00-0.23); BASOPHILS PERCENT AUTO 1 % (0-2); EOSINOPHILS PERCENT AUTO 2 % (0-6); Hematocrit 34.5 % (37.0-53.0); IMMATURE GRAN ABSOLUTE AUTO 0.05 K/mm3 (0.00-0.10); IMMATURE GRAN PERCENT AUTO 0 % (0-1); LYMPHOCYTES PERCENT AUTO 17 % (21-46); MONOCYTES ABSOLUTE AUTO 0.91 K/mm3 (0.16-1.47); MONOCYTES PERCENT AUTO 8 % (4-13); Mean Corpuscular HGB 27.2 pg (26.0-34.0); Mean Corpuscular HGB Conc 31.9 g/dL (31.5-36.5); Mean Corpuscular Volume 85 fL (80-100); Mean Platelet Volume 8.4 fL (9.1-12.4); NEUTROPHILS ABSOLUTE AUTO 8.86 K/mm3 (1.96-9.15); NEUTROPHILS PERCENT AUTO 73 % (41-73); Platelet Count 361 K/mm3 (150-400); RDW Coefficient Variation 15.9 % (11.7-14.2); RDW Standard Deviation 49.2 fL (35.1-46.3); Red Blood Cell Count 4.05 M/mm3 (4.30-5.90); White Blood Cell Count 12.08 K/mm3 (4.00-11.30)
[2022-03-16 10:14] LABS: Albumin, Blood 1.9 g/dL (3.4-5.0); Albumin/Globulin Ratio 0.3 (0.8-1.8); Bilirubin, Total 0.1 mg/dL (0.1-1.0); Bun/Creatinine Ratio 23.7 (12.0-20.0); C-REACTIVE PROTEIN, EXT RANGE 2.28 mg/dL (0.000-0.300); Calcium, Blood 8.4 mg/dL (8.5-10.1); Creatinine, Blood 0.68 mg/dL (0.60-1.20); Globulin, Blood 5.5 g/dL (2.2-4.0); Potassium, Blood 3.9 mmol/L (3.5-5.5); Total Protein, Blood 7.4 g/dL (6.4-8.2)
--- NOTE | 2022-03-16 15:49 | NUR ---
Spiritual care consult recieved and processed. Pt immediately starts crying when I ask how he is holding up. He tells me about his fears of physical pain, of dying and of "not going to heaven." As we lópez into these topics and explore his fears, his lizy and his thoughts about the after life, I provide anxiety containment, theological insights, gentle financial health counselor and prayer. Patient responds well and shows signs of renewed lizy and hope and reduced stress and anxiety. Pt voices his appreciation for the time and care. I will continue to remain available to patient and family.
--- NOTE | 2022-03-16 19:23 | NUR ---
PT ARRIVED TO THE UNIT VIA GURNEY. ORIENTED TO THE ROOM. ORTHO, AND PEDOOTRU CONSULTED. MRI SCREEN FILLED OUT. PT REPORTED THAT HE COULD, AND WOULD NOT HAVE AN MRI. HE REPORTED THAT HE DID NOT DO WELL LAST TIME HE HAD ONE. SPOKE TO DR. SANTOS ABOUT THIS AND A CT WAS ORDERED INSTEAD. PT HAS HAD TWO LOOSE STOOLS SINCE ARRIVING TO THE FLOOR. ISOLATION WAS MAINTAINED. CALL LIGHT IS WITIN REACH.
--- NOTE | 2022-03-17 05:45 | NUR ---
SHIFT SUMMARY NOC PT A/OX 3-4. PT SPEAKS SLOWLY. PT HAS MULTIPLE WOUNDS BLLE. LLE HAS UNSTAGABLE ULCER ON HEEL. PT HAS NICKEL SIZE WOUND COVERED ON R HEEL. PT HAS OPEN EXCORIATION ON COCCYX WITH CLEAN MEPILEX DRESSING IN PLACE. PT HAS OPEN WOUND ON TOP OF FORESKIN OF PENIS. ALSO SCATTERED SCABS AND SCALY SKIN ON BLLE. PT HAS REEVALUATION WITH DR. BARBOSA 03/17/22 TO DISCUSS POSSIBLE AMPUTATION ON LLE. CT SCAN SHOWED NO ACUTE CHANGES. PT IS CURRENTLY GETTING AM LABS DRAWN, BED RAILS UP, BED IN LOWEST POSITION, AND CALL LIGHT WITHIN REACH.
[2022-03-17 06:30] LABS: BASOPHILS ABSOLUTE AUTO 0.07 K/mm3 (0.00-0.23); BASOPHILS PERCENT AUTO 1 % (0-2); EOSINOPHILS ABSOLUTE AUTO 0.37 K/mm3 (0.00-0.68); EOSINOPHILS PERCENT AUTO 3 % (0-6); Hematocrit 34.2 % (37.0-53.0); Hemoglobin 10.8 g/dL (13.5-17.5); IMMATURE GRAN ABSOLUTE AUTO 0.04 K/mm3 (0.00-0.10); IMMATURE GRAN PERCENT AUTO 0 % (0-1); LYMPHOCYTES ABSOLUTE AUTO 1.87 K/mm3 (0.84-5.20); LYMPHOCYTES PERCENT AUTO 17 % (21-46); MONOCYTES ABSOLUTE AUTO 0.89 K/mm3 (0.16-1.47); MONOCYTES PERCENT AUTO 8 % (4-13); Mean Corpuscular HGB 26.9 pg (26.0-34.0); Mean Corpuscular HGB Conc 31.6 g/dL (31.5-36.5); Mean Corpuscular Volume 85 fL (80-100); Mean Platelet Volume 8.4 fL (9.1-12.4); NEUTROPHILS ABSOLUTE AUTO 7.49 K/mm3 (1.96-9.15); NEUTROPHILS PERCENT AUTO 70 % (41-73); Platelet Count 334 K/mm3 (150-400); RDW Standard Deviation 49.6 fL (35.1-46.3); Red Blood Cell Count 4.01 M/mm3 (4.30-5.90); White Blood Cell Count 10.73 K/mm3 (4.00-11.30)
[2022-03-17 06:51] LABS: Bun/Creatinine Ratio 21.8 (12.0-20.0); Calcium, Blood 8.5 mg/dL (8.5-10.1); Creatinine, Blood 0.6 mg/dL (0.60-1.20)
--- NOTE | 2022-03-17 13:00 | NUR ---
DISCHARGE: PT DISCHARGED VIA HOSPITAL WHEELCHAIR WITH VIA AUTOMOBILE. IV TAKEN OUT WITHOUT ISSUES, REDNESS, OR SWELLING. WENT OVER DISCHARGE INSTRUCTIONS WITH PT INCLUDING FOLLOW UP APPOINTMENTS AND NEW MEDICATIONS. PT STATED SHE UNDERSTOOD ALL D/C INSTRUCTIONS AND THANKED THE STAFF FOR HER CARE.
--- NOTE | 2022-03-17 13:57 | NUR ---
PHYSICIAN CONTACT CALLED DR. GRAYSON THIS AM WITH CT RESULTS OF LEFT LEG. NO ANSWER, LEFT VOICEMAIL. THIS RN RECIEVED CALL FROM DR. SANTOS, TELEPHONE ORDERS TO CONSULT ORTHO FOR L BKA PER DR. GRAYSON. CONSULT TO DR. STROUD, CHAINSTITCH BINDER ORTHO, CALLED IN.
--- NOTE | 2022-03-17 18:03 | NUR ---
SHIFT SUMMARY: PT ALERT AND ORIENTED X3-4. HE WAS PLEASANT AND COOPERATIVE WITH ALL CARE. WOUND NURSE CAME UP TO EVALUATE, CLEAN, AND DRESS WOUNDS ON COOCYX AND HEEL. PT IS AGREEING TO LEFT BKA TOMORROW. PICTURES OF WOUND TAKEN AND IN PT'S CHART. NPO AFTER MIDNIGHT. PT IS STILL HAVING LOOSE AND WATERY DIARRHEA. RECTAL TUBE ORDERED AND WILL BE PLACED PRIOR TO SHIFT CHANGE. VANCO RAN TODAY W/O COMPLICATIONS. BED IN LOWEST POSITION. CALL LIGHT IN REACH. WILL CONTINUE TO MONITOR.
[2022-03-17 21:38] LABS: Vancomycin, Trough 13.9 ug/mL (5.0-10.0)
[2022-03-18 04:03] LABS: Influenza A, PCR NEGATIVE (NEGATIVE); Influenza B, PCR NEGATIVE (NEGATIVE); Resp Syncytial Virus, PCR NEGATIVE (NEGATIVE); SARS-Cov-2 (COVID-19) PCR, MMC NEGATIVE (NEGATIVE)
--- NOTE | 2022-03-18 04:08 | NUR ---
SHIFT SUMMARY NOC PT A/O X4. PT HAS HEIGHTENED ANXIETY ABOUT L BKA BEING PERFORMED 03/18/22. PT IS NPO. PT HAS HAD LOW GRADE FEVER AND HAS BEEN MEDICATED PER EMAR WITH TYLENOL. FEVER HAS GONE DOWN FROM 102.3F TO 98.7F. PT RECTAL TUBE WAS LEAKING PROFUSELY AND CAME OUT. DEAF AND HARD OF HEARING TEACHER PLACED NEW RECTAL TUBE IS DRAINING LIQUID STOOL TO GRAVITY. PT IS CURRENTLY AWAKE IN BED CONCERNED ABOUT L BKA PROCEDURE.PT NIECE CALLED AND HELPED TO CALM ANXIETY. PT HAS BED RAILS UP, BED IN LOWEST POSITION, AND CALL LIGHT WITHIN REACH. WCTM.
[2022-03-18 05:56] LABS: Bun/Creatinine Ratio 29.2 (12.0-20.0); Creatinine, Blood 0.62 mg/dL (0.60-1.20); Potassium, Blood 4.4 mmol/L (3.5-5.5)
[2022-03-18 06:02] LABS: BASOPHILS ABSOLUTE AUTO 0.07 K/mm3 (0.00-0.23); BASOPHILS PERCENT AUTO 1 % (0-2); EOSINOPHILS ABSOLUTE AUTO 0.21 K/mm3 (0.00-0.68); EOSINOPHILS PERCENT AUTO 2 % (0-6); Hematocrit 31.8 % (37.0-53.0); Hemoglobin 10.2 g/dL (13.5-17.5); IMMATURE GRAN ABSOLUTE AUTO 0.04 K/mm3 (0.00-0.10); IMMATURE GRAN PERCENT AUTO 0 % (0-1); LYMPHOCYTES ABSOLUTE AUTO 1.99 K/mm3 (0.84-5.20); LYMPHOCYTES PERCENT AUTO 14 % (21-46); MONOCYTES ABSOLUTE AUTO 0.97 K/mm3 (0.16-1.47); MONOCYTES PERCENT AUTO 7 % (4-13); Mean Corpuscular HGB Conc 32.1 g/dL (31.5-36.5); Mean Corpuscular Volume 84 fL (80-100); Mean Platelet Volume 8.4 fL (9.1-12.4); NEUTROPHILS ABSOLUTE AUTO 10.62 K/mm3 (1.96-9.15); NEUTROPHILS PERCENT AUTO 76 % (41-73); Platelet Count 341 K/mm3 (150-400); RDW Coefficient Variation 15.6 % (11.7-14.2); RDW Standard Deviation 47.6 fL (35.1-46.3); Red Blood Cell Count 3.78 M/mm3 (4.30-5.90)
--- NOTE | 2022-03-18 18:04 | NUR ---
SHIFT SUMMARY: PATIENT ALERT AND ORIENTED X3-4. PT WAS PLEASANT AND COOPERATIVE WITH CARE. DR. STROUD WANTED TO HAVE PODIETRY TAKE A LOOK AT PT'S WOUND ON LEFT LEG AND HAVE MRI COMPLETED PRIOR TO AMPUTATION. DR. GRAYSON ARRIVED THIS AM TO LOOK AT PATIENTS WOUND. MRI WAS COMPLETED AT 1430 WHICH SHOWED EARLY STAGES OF OSTEOMYELITIS. POSSIBLE AMPUTATION TOMORROW. ROTATING PATIENT Q2. PT C/O 10/10 PAIN IN LEGS. GAVE PT IV TORADOL WHICH BROUGHT HIS PAIN DOWN TO 8/10. POWERGLIDE WAS PLACED IN LEFT UPPER ARM. BOTH FOREARM IV AND POWERGLIDE FLUSHING W/O COMPLICATIONS. RECTAL TUBE IN PLACE W/O ISSUES AND DRAINING TO GRAVITY. CALL LIGHT IN REACH. BED IN LOWEST POSITION. WILL CONTINUE TO MONITOR.
[2022-03-18 21:53] LABS: Vancomycin, Trough 18.7 ug/mL (5.0-10.0)
--- NOTE | 2022-03-19 04:46 | NUR ---
SHIFT SUMMARY; NO ACUTE CHANGES T/O THE NIGHT. THE PT RESTED IN BED T/O THE NIGHT. THE PT WAS KIND AND COOPERATIVE OF CARE T/O THE NIGHT. THE PT WAS REPOSITIONED Q2HRS. THE PTS RECTAL TUBE REMAINS IN PLACE, DRAINING TO GRAVITY. THE PT DENIES ANY SOB OR PAIN AT THIS TIME. CURRENTLY THE PT IS RESTING IN BED AWAITING HIS L BKA TODAY. PT REMAINED NPO AFTER MIDNIGHT. THE BED IS IN THE LOWEST POSITION AND THE CALL LIGHT IS AT BEDSIDE.
[2022-03-19 06:16] LABS: BASOPHILS ABSOLUTE AUTO 0.09 K/mm3 (0.00-0.23); BASOPHILS PERCENT AUTO 0 % (0-2); EOSINOPHILS ABSOLUTE AUTO 0.11 K/mm3 (0.00-0.68); EOSINOPHILS PERCENT AUTO 1 % (0-6); Hemoglobin 10.5 g/dL (13.5-17.5); IMMATURE GRAN ABSOLUTE AUTO 0.08 K/mm3 (0.00-0.10); IMMATURE GRAN PERCENT AUTO 0 % (0-1); LYMPHOCYTES ABSOLUTE AUTO 2.49 K/mm3 (0.84-5.20); LYMPHOCYTES PERCENT AUTO 12 % (21-46); MONOCYTES ABSOLUTE AUTO 1.19 K/mm3 (0.16-1.47); MONOCYTES PERCENT AUTO 6 % (4-13); Mean Corpuscular HGB 27.3 pg (26.0-34.0); Mean Corpuscular HGB Conc 32.8 g/dL (31.5-36.5); Mean Corpuscular Volume 83 fL (80-100); Mean Platelet Volume 8.7 fL (9.1-12.4); NEUTROPHILS ABSOLUTE AUTO 16.65 K/mm3 (1.96-9.15); NEUTROPHILS PERCENT AUTO 81 % (41-73); Platelet Count 369 K/mm3 (150-400); RDW Coefficient Variation 15.5 % (11.7-14.2); RDW Standard Deviation 47.4 fL (35.1-46.3); Red Blood Cell Count 3.85 M/mm3 (4.30-5.90); White Blood Cell Count 20.61 K/mm3 (4.00-11.30)
[2022-03-19 06:42] LABS: Albumin, Blood 1.9 g/dL (3.4-5.0); Albumin/Globulin Ratio 0.4 (0.8-1.8); Bilirubin, Total 0.4 mg/dL (0.1-1.0); Bun/Creatinine Ratio 36.1 (12.0-20.0); Calcium, Blood 8.7 mg/dL (8.5-10.1); Creatinine, Blood 0.66 mg/dL (0.60-1.20); Globulin, Blood 5.3 g/dL (2.2-4.0); Potassium, Blood 3.8 mmol/L (3.5-5.5); Total Protein, Blood 7.2 g/dL (6.4-8.2)
--- NOTE | 2022-03-19 12:25 | NUR ---
PT TO PACU FROM THE FLOOR TO BE MADE FOR SURGERY. VS TAKEN, GLUCOSE CHECKED,PT PROVIDED HAT AND MASK. ACP IN TO SEE PT, CONSENTS SIGNED AND SURGICAL SITE VERIFIED. PT APPEARS WEAK, OVER ALL SKIN IS PALE AND LOWER EXTREMTITIES IN POOR CONDITION. SCDS SENT TO OR BUT NOT PLACED ON NON-OPERATIVE LEG DUE TO SKIN CONDITION. PT NOT A GOOD HISTORIAN BUT WAS ABLE TO VERIFY NPO STATUS. IV PATENT AND FLUSHED LEFT FOREARM, RECTAL TUBE IN PLACE, AND REPORT GIVEN TO CIRCULATING RN.
--- NOTE | 2022-03-19 13:21 | NUR ---
03/19/22 1321 Stephenie Ramírez 2G ANCEF GIVEN TO PATIENT FROM ANESTHESIOLOGIST AT 1209 PATIENTS PRESENTS TO OR WITH RECTAL TUBE IN PLACE
--- NOTE | 2022-03-19 14:20 | NUR ---
@1419 CHEM BG TAKEN. PT GLUCOSE AT 58. PT DENIES BEING SYMPTOMATIC ALTHOUGH HE IS VERY GROGGY. @0003 DR DIAL CONSULTED. VO TO GIVE PT 12.5 MG IV DEXTROSE.
--- NOTE | 2022-03-19 19:08 | NUR ---
SHIFT SUMMARY- PT IS A/O, PLESANT AND COOPERATIVE. HE WENT FOR HIS BKA THIS AFTERNOON. BLOOD GLUCOSE WAS LOW THIS MORNING AND WAS TREATED WITH IV DEXTROSE. HE HAD ANOTHER EPISOSE OF LOW BLOOD GLUCOSE DURING HIS TIME IN DAY SURGERY AND WAS TREATED THERE. HE SLEPT INTERMITENTLY AFTER RETURNING FROM THE OR. NO C/O OF PAIN AT THIS TIME. HE REFUSED DINNER. HIS BANDAGE IS C/D/I. HIS BED IS IN THE LOW POSITION AND CALL LIGHT IS WITIN REACH.
[2022-03-19 22:50] LABS: Vancomycin, Trough 20.2 ug/mL (5.0-10.0)
--- NOTE | 2022-03-19 22:52 | NUR ---
NOTIFIED RANDY Dunham PHARMACIST OF PTS CRITICALLY HIGH VANCO THROUGH LEVEL AT 20.2. PER RANDY 20.0 IS THE TARGETED LEVEL, THEREFORE CALL TO THE HOSPITALIST WAS NOT MADE IN REGARDS TO THIS CRITICAL LAB VALUE.
--- NOTE | 2022-03-20 04:35 | NUR ---
SHIFT SUMMARY; NO ACUTE CHANGES OVERNIGHT. THE PT REPORTED 10/10 PAIN AT THE BEGINNING OF SHIFT IN RELATION TO HIS L BKA ON 03/19/22, BUT AFTER BEING MEDICATED ONCE WITH OXYCODONE AND DILUADID THE PT HAS BEEN ABLE TO SLEEP THE REMAINDER OF THE SHIFT. THE PT REMAINS WITH AN OBTUNDED AFFECT TODAY. RECTAL TUBE REMAINS IN PLACE. PRESENTLY THE PT IS SLEEPING IN BED WITH THE BED IN THE LOWEST POSITION AND THE CALL LIGHT AT BEDSIDE.
[2022-03-20 06:27] LABS: BASOPHILS ABSOLUTE AUTO 0.08 K/mm3 (0.00-0.23); BASOPHILS PERCENT AUTO 1 % (0-2); EOSINOPHILS ABSOLUTE AUTO 0.12 K/mm3 (0.00-0.68); EOSINOPHILS PERCENT AUTO 1 % (0-6); Hematocrit 29.9 % (37.0-53.0); Hemoglobin 9.7 g/dL (13.5-17.5); IMMATURE GRAN ABSOLUTE AUTO 0.05 K/mm3 (0.00-0.10); IMMATURE GRAN PERCENT AUTO 0 % (0-1); LYMPHOCYTES ABSOLUTE AUTO 2.34 K/mm3 (0.84-5.20); LYMPHOCYTES PERCENT AUTO 16 % (21-46); MONOCYTES ABSOLUTE AUTO 0.91 K/mm3 (0.16-1.47); MONOCYTES PERCENT AUTO 6 % (4-13); Mean Corpuscular HGB 27.4 pg (26.0-34.0); Mean Corpuscular HGB Conc 32.4 g/dL (31.5-36.5); Mean Corpuscular Volume 85 fL (80-100); Mean Platelet Volume 8.3 fL (9.1-12.4); NEUTROPHILS ABSOLUTE AUTO 10.83 K/mm3 (1.96-9.15); NEUTROPHILS PERCENT AUTO 76 % (41-73); Platelet Count 312 K/mm3 (150-400); RDW Coefficient Variation 15.3 % (11.7-14.2); RDW Standard Deviation 47.6 fL (35.1-46.3); Red Blood Cell Count 3.54 M/mm3 (4.30-5.90); White Blood Cell Count 14.33 K/mm3 (4.00-11.30)
[2022-03-20 07:01] LABS: Bun/Creatinine Ratio 33.6 (12.0-20.0); C-REACTIVE PROTEIN, EXT RANGE 9.32 mg/dL (0.000-0.300); Calcium, Blood 8.4 mg/dL (8.5-10.1); Creatinine, Blood 0.6 mg/dL (0.60-1.20); Magnesium, Blood 1.8 mg/dL (1.6-2.4); Potassium, Blood 4.1 mmol/L (3.5-5.5)
--- NOTE | 2022-03-20 18:33 | NUR ---
SHIFT SUMMARY: PT A&O X3, CONFUSION WITH TIME EASILY ORIENTATED, SPEECH SLOW RESPONDS. PT SEEN BY PT, HAD DIFFICULTY WITH MOTIVATION AND ANXIOUS ABOUT MOVING. PT MEDICATED PRIOR TO THERAPY. PT SURIGAL SITE ASSESSED BY DR. HOFFMAN, NEW WOUND CARE ORDERS PLACED. PT HAD NO FURTHER COMPLAINTS OF PAIN, AND SLEPT MOST OF THE SHIFT. PT MORING CBG 81, PT GIVEN APPLEJUICE AND REASSESSED POST 1HR, CBG 194. DR. MANLEY NOTIFED DURING ROUNDS, PT HAS STABLE CBG FOR LUNCH AND DINNER. PT HAD NO FURTHER LOOSE STOOL, PT RECEVIED BANANA FLAKES TID DURING THE SHIFT. PT IN BED WITH CALL LIGHT WITHIN REACH.
--- NOTE | 2022-03-21 03:16 | NUR ---
[facility] [[email or web address]] SHIFT SUMMARY ALTHOUGH SLIGHT ELEVATED TEMP AND ELEVATED WBC, VSS. IVF INFUSING AND ANTIBIOTICS ADMINISTERED ORDERED. ALERT TO QUESTIONS ASKED, BUT SLOW TO RESPOND. HOB ELEVATED FOR COMFORT. RECTAL TUBE REMAINS IN USE FOR LOOSE STOOL. INCONT OF URINE, LINEN CHANGED. CONTACT ISOLATION MAINTAINED. HAS BEEN RESTING QUIETLY WITH FEW INTERRUPTIONS. DRESSING INTACT. CALL LIGHT IN REACH. WILL CONTIUE TO MONITOR.
[2022-03-21 07:48] LABS: BASOPHILS ABSOLUTE AUTO 0.07 K/mm3 (0.00-0.23); BASOPHILS PERCENT AUTO 1 % (0-2); EOSINOPHILS ABSOLUTE AUTO 0.16 K/mm3 (0.00-0.68); EOSINOPHILS PERCENT AUTO 1 % (0-6); Hematocrit 28.5 % (37.0-53.0); Hemoglobin 9.3 g/dL (13.5-17.5); IMMATURE GRAN ABSOLUTE AUTO 0.05 K/mm3 (0.00-0.10); IMMATURE GRAN PERCENT AUTO 0 % (0-1); LYMPHOCYTES ABSOLUTE AUTO 1.79 K/mm3 (0.84-5.20); LYMPHOCYTES PERCENT AUTO 14 % (21-46); MONOCYTES ABSOLUTE AUTO 1.05 K/mm3 (0.16-1.47); MONOCYTES PERCENT AUTO 8 % (4-13); Mean Corpuscular HGB 27.3 pg (26.0-34.0); Mean Corpuscular HGB Conc 32.6 g/dL (31.5-36.5); Mean Corpuscular Volume 84 fL (80-100); Mean Platelet Volume 8.3 fL (9.1-12.4); NEUTROPHILS ABSOLUTE AUTO 9.74 K/mm3 (1.96-9.15); NEUTROPHILS PERCENT AUTO 76 % (41-73); Platelet Count 284 K/mm3 (150-400); RDW Coefficient Variation 15.2 % (11.7-14.2); RDW Standard Deviation 46.5 fL (35.1-46.3); Red Blood Cell Count 3.41 M/mm3 (4.30-5.90); White Blood Cell Count 12.86 K/mm3 (4.00-11.30)
[2022-03-21 08:44] LABS: Albumin, Blood 1.8 g/dL (3.4-5.0); Albumin/Globulin Ratio 0.4 (0.8-1.8); Bilirubin, Total 0.3 mg/dL (0.1-1.0); Bun/Creatinine Ratio 31.6 (12.0-20.0); Calcium, Blood 8.5 mg/dL (8.5-10.1); Creatinine, Blood 0.47 mg/dL (0.60-1.20); Potassium, Blood 3.6 mmol/L (3.5-5.5); Total Protein, Blood 6.8 g/dL (6.4-8.2)
[2022-03-21 12:29] LABS: Influenza A, PCR NEGATIVE (NEGATIVE); Influenza B, PCR NEGATIVE (NEGATIVE); Resp Syncytial Virus, PCR NEGATIVE (NEGATIVE); SARS-Cov-2 (COVID-19) PCR, MMC NEGATIVE (NEGATIVE)
[2022-03-21] MEDS ORDERED: BACTRIM 400-801 EACH PO (15:19)
[2022-03-21] MEDS ORDERED: VISBIOME 112.51 EACH PO (15:20)
[2022-03-21] MEDS ORDERED: LOPE2C PO (15:21)
[2022-03-21] MEDS ORDERED: Acetaminophen650 M1 PO (15:22)
--- NOTE | 2022-03-21 16:55 | NUR ---
DISCHARGE NOTE: PT A&O X4, PLEASANT AND COOPERATIVE. PT PERSONAL ITEMS PACKED BY YAKOV OLGUIN. PT IV AND PG PULLED W/O DIFFICULTY. PT TRANSPORTED VIA [facility] TO [facility] AND PACKET GIVEN TO TRANSPORT. REPORT GIVEN TO KENTON BORJA AT [facility].
== END 2022-03-21 16:32 | DRG 617 ==
LOC: ER 09:35 → MEDS 13:13
PROVIDERS: Emergency Medicine; Family Medicine; Orthopaedic Surgery; ADMIT Internal Medicine
PROC: 0Y6J0Z1 Detachment at Left Lower Leg, High, Open Approach (ICD-10-PCS; principal; 2022-03-19 07:30)
DX: E11.69 Type 2 diabetes mellitus with other specified complication (principal); L97.419 Non-pressure chronic ulcer of right heel and midfoot with unspecified severity; M86.8X7 Other osteomyelitis, ankle and foot; L97.429 Non-pressure chronic ulcer of left heel and midfoot with unspecified severity; E11.621 Type 2 diabetes mellitus with foot ulcer; I10 Essential (primary) hypertension; E11.649 Type 2 diabetes mellitus with hypoglycemia without coma; E05.80 Other thyrotoxicosis without thyrotoxic crisis or storm; G31.9 Degenerative disease of nervous system, unspecified; E78.5 Hyperlipidemia, unspecified; F31.9 Bipolar disorder, unspecified; E11.51 Type 2 diabetes mellitus with diabetic peripheral angiopathy without gangrene; E11.42 Type 2 diabetes mellitus with diabetic polyneuropathy; Z20.822 Contact with and (suspected) exposure to COVID-19; Z88.8 Allergy status to other drugs, medicaments and biological substances; Z86.718 Personal history of other venous thrombosis and embolism; Z86.14 Personal history of Methicillin resistant Staphylococcus aureus infection; Z79.899 Other long term (current) drug therapy; Z79.4 Long term (current) use of insulin; Z79.02 Long term (current) use of antithrombotics/antiplatelets; Z79.01 Long term (current) use of anticoagulants; Z98.890 Other specified postprocedural states; Z89.421 Acquired absence of other right toe(s); Z87.891 Personal history of nicotine dependence
CPT/HCPCS: 0241U; 36415; 73620; 73701; 73723; 80048; 80053; 80202; 82947; 83735; 85025; 85651; 86140; 88307; 88311; 96365; 96366; 97110; 97112; 97161; 97166; 97530; 99285-25; A9270; A9579; C1751; J0171; J0696; J1100; J1170; J1650; J1815; J1885; J2060; J2370; J2704; J2765; J3010; J3370; J3480; J7050; J7120; J7799; Q9967

== ENCOUNTER 2022-04-05 21:31 | Emergency (ER) | payer MEDICARE, OTHER ==
[~2022-04-05] VITALS: Ht 188 cm; Wt 124.7 kg
[~2022-04-05 21:31] MED LIST changes: +Acetaminophen650 M1 PO; +BACTRIM 400-801 EACH PO; +LOPE2C PO
[2022-04-05 22:29] LABS: BASOPHILS ABSOLUTE AUTO 0.07 K/mm3 (0.00-0.23); BASOPHILS PERCENT AUTO 1 % (0-2); EOSINOPHILS ABSOLUTE AUTO 0.35 K/mm3 (0.00-0.68); EOSINOPHILS PERCENT AUTO 3 % (0-6); Hematocrit 32.5 % (37.0-53.0); Hemoglobin 10.5 g/dL (13.5-17.5); IMMATURE GRAN ABSOLUTE AUTO 0.04 K/mm3 (0.00-0.10); IMMATURE GRAN PERCENT AUTO 0 % (0-1); LYMPHOCYTES ABSOLUTE AUTO 2.44 K/mm3 (0.84-5.20); LYMPHOCYTES PERCENT AUTO 21 % (21-46); MONOCYTES ABSOLUTE AUTO 1.06 K/mm3 (0.16-1.47); MONOCYTES PERCENT AUTO 9 % (4-13); Mean Corpuscular HGB 27.2 pg (26.0-34.0); Mean Corpuscular HGB Conc 32.3 g/dL (31.5-36.5); Mean Corpuscular Volume 84 fL (80-100); Mean Platelet Volume 8.6 fL (9.1-12.4); NEUTROPHILS ABSOLUTE AUTO 7.82 K/mm3 (1.96-9.15); NEUTROPHILS PERCENT AUTO 66 % (41-73); Platelet Count 335 K/mm3 (150-400); RDW Coefficient Variation 16.4 % (11.7-14.2); RDW Standard Deviation 49.8 fL (35.1-46.3); Red Blood Cell Count 3.86 M/mm3 (4.30-5.90); White Blood Cell Count 11.78 K/mm3 (4.00-11.30)
[2022-04-05] MEDS ORDERED: HUMALOG100 UNIT/1 SC (22:42)
[2022-04-05] MEDS ORDERED: TRAZ50 PO (22:43)
[2022-04-05 22:52] LABS: Albumin, Blood 2.1 g/dL (3.4-5.0); Albumin/Globulin Ratio 0.4 (0.8-1.8); Bilirubin, Total 0.1 mg/dL (0.1-1.0); Bun/Creatinine Ratio 33.7 (12.0-20.0); Calcium, Blood 8.6 mg/dL (8.5-10.1); Creatinine, Blood 0.59 mg/dL (0.60-1.20); Globulin, Blood 4.9 g/dL (2.2-4.0); Potassium, Blood 4.2 mmol/L (3.5-5.5)
== END 2022-04-06 07:03 | disposition home or self-care (01) ==
LOC: ER 21:31
PROVIDERS: Emergency Medicine
DX: R53.83 Other fatigue (principal); R50.9 Fever, unspecified; E11.9 Type 2 diabetes mellitus without complications; I10 Essential (primary) hypertension; Z87.891 Personal history of nicotine dependence; Z88.8 Allergy status to other drugs, medicaments and biological substances; Z79.4 Long term (current) use of insulin; Z79.899 Other long term (current) drug therapy
CPT/HCPCS: 36415; 71045; 80053; 82550; 83605; 83880; 84484; 85025; 93005; 93010; J7030

== ENCOUNTER → 2022-04-13 | Outpatient (CLI) | payer MEDICARE, OTHER ==
[~2022-04-13] MED LIST changes: +HUMALOG100 UNIT/1 SC; +TRAZ50 PO
[2022-04-13 13:32] LABS: BASOPHILS ABSOLUTE AUTO 0.08 K/mm3 (0.00-0.23); BASOPHILS PERCENT AUTO 1 % (0-2); EOSINOPHILS PERCENT AUTO 3 % (0-6); Hematocrit 33.5 % (37.0-53.0); Hemoglobin 10.8 g/dL (13.5-17.5); IMMATURE GRAN ABSOLUTE AUTO 0.05 K/mm3 (0.00-0.10); IMMATURE GRAN PERCENT AUTO 0 % (0-1); LYMPHOCYTES ABSOLUTE AUTO 2.23 K/mm3 (0.84-5.20); LYMPHOCYTES PERCENT AUTO 17 % (21-46); MONOCYTES ABSOLUTE AUTO 0.97 K/mm3 (0.16-1.47); MONOCYTES PERCENT AUTO 8 % (4-13); Mean Corpuscular HGB 27.2 pg (26.0-34.0); Mean Corpuscular HGB Conc 32.2 g/dL (31.5-36.5); Mean Corpuscular Volume 84 fL (80-100); Mean Platelet Volume 9.2 fL (9.1-12.4); NEUTROPHILS ABSOLUTE AUTO 9.08 K/mm3 (1.96-9.15); NEUTROPHILS PERCENT AUTO 71 % (41-73); Platelet Count 285 K/mm3 (150-400); RDW Coefficient Variation 15.9 % (11.7-14.2); RDW Standard Deviation 48.9 fL (35.1-46.3); Red Blood Cell Count 3.97 M/mm3 (4.30-5.90); White Blood Cell Count 12.81 K/mm3 (4.00-11.30)
[2022-04-13 14:03] LABS: Albumin, Blood 1.9 g/dL (3.4-5.0); Albumin/Globulin Ratio 0.4 (0.8-1.8); Bilirubin, Total 0.2 mg/dL (0.1-1.0); Bun/Creatinine Ratio 26.9 (12.0-20.0); Calcium, Blood 8.6 mg/dL (8.5-10.1); Creatinine, Blood 0.52 mg/dL (0.60-1.20); Globulin, Blood 4.8 g/dL (2.2-4.0); Potassium, Blood 3.8 mmol/L (3.5-5.5); Total Protein, Blood 6.7 g/dL (6.4-8.2)
[2022-04-13 21:17] LABS: Appearance, Urine Turbid (Clear); Bilirubin, Urine Neg (Neg); Blood, Urine 5+ (Neg); Color, Urine Red (P-Yellow); Glucose Qualitative, Urine Neg (Neg); Ketones, Urine Neg (Neg); Leukocyte Esterase, Urine 2+ (Neg); Nitrite, Urine Neg (Neg); Protein, Urine 3+ (Neg); Specific Gravity, Urine 1.015 (1.003-1.022); Urobilinogen, Urine NORM (Normal)
[2022-04-13 21:40] LABS: Bacteria Many /hpf; Red Blood Cells, Urine TNTC /hpf (0-2); Squamous Epithelial Cells Few /hpf (Few)
== END ==
LOC: EDSTATUS 09:51 → LAB RH 12:31
PROVIDERS: Internal Medicine
DX: R31.9 Hematuria, unspecified (principal); I42.1 Obstructive hypertrophic cardiomyopathy; R79.9 Abnormal finding of blood chemistry, unspecified
CPT/HCPCS: 80053; 81001; 85025